=== PATIENT | female | born 1935 | race Caucasian/White ===

== ENCOUNTER 2016-07-07 09:54 | Emergency (ER) | payer OTHER, MEDICARE ==
[~2016-07-07] VITALS: Ht 157.5 cm; Wt 64.1 kg
[~2016-07-07 09:54] MED LIST: ASPCH81 PO; CHOL100010 PO; CLTP PO; CYAN500T PO; HYDC25 PO; PRM/45 PO; SIMV20TA2 PO; TPRSRUNK PO
[2016-07-07 10:02] VITALS: TEMP 36.6; Ht 157.5 cm; Wt 64.1 kg
[2016-07-07] MEDS ORDERED: HYDR25TA5 PO (10:32)
[2016-07-07] MEDS ORDERED: LOSA100T65 PO (10:32)
[2016-07-07] MEDS ORDERED: ZCR40 PO (10:32)
[2016-07-07] MEDS ORDERED: ASPI81TA28 PO (10:32)
[2016-07-07] MEDS ORDERED: PRM/3 PO (10:32)
[2016-07-07] MEDS ORDERED: MELO7.5T5 PO (10:32)
[2016-07-07] MEDS ORDERED: TPRSR/50 PO (10:32)
[2016-07-07] MEDS ORDERED: CHOL100010 PO (10:33)
[2016-07-07] MEDS ORDERED: PYRI100T4 PO (10:33)
[2016-07-07 10:51] VITALS: O2SAT 94
[2016-07-07 11:06] LABS: BASO % 0.2 %; BASO ABS # 0.02 K/uL (0-0.2); COMPLETE YES; EOS % 0.7 %; IG% 0.3 %; LYMPH % 16.3 %; LYMPH ABS # 1.91 K/uL (1.2-3.4); MEAN CELL VOLUME 93.5 fL (80-100); MEAN CORPUSCULAR HEMOGLOBIN 31.7 pg (25-34); MEAN CORPUSCULAR HGB CONC 33.9 g/dl (32-36); MEAN PLATELET VOLUME 11.5 fL (7.4-10.4); MONO % 5.5 %; PLATELET COUNT 218 K/uL (130-400); RED BLOOD COUNT 3.85 M/uL (4.2-5.4)
[2016-07-07 11:18] LABS: INR 0.9 (0.9-1.1); PARTIAL THROMBOPLASTIN RATIO 0.9; PROTHROMBIN TIME (PATIENT) 9.9 SECONDS (9.0-12.0)
--- NOTE | 2016-07-07 11:19 | DIAGNOSTIC IMAGING REPORT ---
CHEST 2 VIEWS ROUTINE CLINICAL HISTORY: cough dyspnea COMPARISON STUDY: 04/03/2011 FINDINGS: interval median sternotomy. Diaphragms smooth. Mild chronic elevation left hemidiaphragm. Lungs are clear. IMPRESSION: No acute process Electronically signed by: Morris Marquez M.D. 07/07/2016 11:18 AM Dictated Date/Time: 07/07/2016 11:17 AM
[2016-07-07 11:22] LABS: URINE APPEARANCE CLOUDY (CLEAR); URINE BILIRUBIN NEG (NEG); URINE COLOR YELLOW; URINE EPITHELIAL CELL AUTO >30 /lpf (0-5); URINE NITRITE NEG (NEG); URINE PH 5.5 (4.5-7.5); URINE SPECIFIC GRAVITY 1.018 (1.000-1.030); UROBILINOGEN NEG (NEG); ZZUR CULT IF INDIC CLEAN CATCH NO
[2016-07-07 11:25] LABS: BUN/CREATININE RATIO 18.9 (10-20); CALCIUM 8.6 mg/dl (8.5-10.1); CREATININE 0.86 mg/dl (0.60-1.20); MAGNESIUM 2.3 mg/dl (1.8-2.4); POTASSIUM 3.4 mmol/L (3.5-5.1)
[2016-07-07 11:25] LABS: MANUAL MICROSCOPIC REQUIRED? NO; REVIEW REQ? NO
[2016-07-07 11:36] LABS: ALB/GLOB RATIO 0.8 (0.9-2); CKMB/CK RATIO 1.6 (0-3.0); THYROID STIMULATING HORMONE 1.27 uIu/ml (0.300-4.500)
[2016-07-07] MEDS ORDERED: ALBUTEROL HFA 8 GM INHALER INH STA (12:41)
[2016-07-07] MEDS ORDERED: AZITHROMYCIN 250 MG TAB PO ONE (12:45)
[2016-07-07] MEDS ORDERED: ZTHM250 PO (13:36)
--- NOTE | 2016-07-07 13:39 | EMERGENCY ROOM VISIT NOTE ---
History First contact with patient: 10:13 Chief Complaint: COUGH Stated Complaint: COUGHING X 1 1/2 WKS., CONGESTION Nursing Triage Summary: pt reports coughX 2.5 weeks with " sticky phlegm yellow in color" + increased sob , denies LUCAS or NV History of Present Illness The patient is a 81 year old female who presents to the Emergency Department by private vehicle for evaluation of a cough and congestion for the past 2.5 weeks. She reports experiencing a hoarse cough as well as production of greenish sputum over the last few days. She denies any fevers or chills. She reports nasal congestion. She reports an epigastric abdominal discomfort which is worse with cough. She denies any chest pain, palpitations, shortness of breath, dizziness, or lightheadedness. She denies any recent sick contacts. She rates her current discomfort as a 0/10. Patient denies any recent long distance travel. She does report a history of coronary artery disease with bypass 3 years ago. She reports absolute no chest pain, exertional pain, or hemoptysis. Review of Systems A complete 10-point Review of Systems was discussed with the patient, with pertinent positives and negatives listed in the History of Present Illness. All remaining Review of Systems questions can be considered negative unless otherwise specified. Past Medical/Surgical History Medical Problems: (1) Heart disease (2) Hypertension Family History Heart disease Hypertension Social History Smoking Status: Never Smoker Smokeless Tobacco Use: No Alcohol Use: none Marital Status: single Housing Status: lives alone Occupation Status: employed Current/Historical Medications Scheduled Aspirin (Aspirin Ec), 81 MG PO DAILY Azithromycin (Azithromycin), 1 TAB PO DAILY Cholecalciferol (Vitamin D), 2,000 UNITS PO DAILY Estrogens, Conjugated (Premarin), 0.3 MG PO DAILY Hydrochlorothiazide (Hydrochlorothiazide), 25 MG PO DAILY Losartan Potassium (Cozaar), 100 MG PO DAILY Meloxicam (Mobic), 7.5 MG PO DAILY Metoprolol Succinate (Metoprolol Succinate ER), 50 MG PO DAILY Pyridoxine (Vitamin B6), 100 MG PO DAILY Simvastatin (Simvastatin), 40 MG PO QPM Allergies Coded Allergies: Amoxicillin (Verified Allergy, Unknown, "SHORT OF BREATH", 07/07/16) Physical Exam Vital Signs Date Time Temp Pulse Resp B/P Pulse Ox O2 Delivery O2 Flow Rate FiO2 07/07/16 14:02 68 21 122/62 96 07/07/16 12:36 64 21 120/60 96 07/07/16 11:01 62 07/07/16 10:51 94 Room Air 07/07/16 10:02 36.6 74 18 158/68 94 Room Air Pain Rating (0-10): 0 Physical Exam VITAL SIGNS - Vital signs and nursing notes were reviewed. GENERAL - 81-year-old female appearing her stated age who is in no acute distress. Communicates well with provider and answers questions appropriately. HEAD - NC/AT. EYES - PERRL with EOMI bilaterally. Sclera anicteric. Palpebral conjunctiva pink and moist with no injection noted. EARS - No deformities of external structures noted on gross examination bilaterally. No pain elicited with palpation of the tragus bilaterally. External auditory canals without discharge or otorrhea. Tympanic membranes pearly rodriguez without retraction or bulging. NOSE - Midline and without cyanosis. No epistaxis or purulent drainage noted. Septum midline without deviation or septal hematoma noted. MOUTH/OROPHARYNX - Without perioral cyanosis. Buccal mucosa pink and moist and without leukoplakia. Tongue midline with equal elevation of palate bilaterally. No tonsillar hypertrophy, erythema, or exudates noted. NECK - Neck with FROM. Supple to palpation. LUNGS - Chest wall symmetric without accessory muscle use, intercostals retractions, or central cyanosis. Normal vesicular breath sounds CTA B/L. No wheezes, rales, or rhonchi appreciated. CARDIAC - RRR with S1/S2. No murmur, rubs, or gallops appreciated. No reproducible tenderness to palpation appreciated over the anterior chest wall. ABDOMEN - Abdominal contour flat and without pulsations or visible masses. BS normoactive all four quadrants. No tenderness, palpable masses, hepatosplenomegaly, or ascites noted. EXTREMITIES - No clubbing or peripheral cyanosis. No pretibial edema present. +3 /5 radial and dorsalis pedis pulses palpated throughout. +5/5 strength noted in UE/LE bilaterally. PSYCH - A&Ox3 and cooperates fully with examiner. Pt is very pleasant and interacts well with examiner. Medical Decision & Procedures ER Provider Diagnostic Interpretation: Radiological imaging and reports were reviewed by myself. Radiologist's Interpretation as follows: CHEST 2 VIEWS ROUTINE CLINICAL HISTORY: cough dyspnea COMPARISON STUDY: 04/03/2011 FINDINGS: interval median sternotomy. Diaphragms smooth. Mild chronic elevation left hemidiaphragm. Lungs are clear. Laboratory Results 07/07/16 10:50 Red Blood Count 3.85, Mean Corpuscular Volume 93.5, Mean Corpuscular Hemoglobin 31.7, Mean Corpuscular Hemoglobin Concent 33.9, Mean Platelet Volume 11.5, Neutrophils (%) (Auto) 77.0, Lymphocytes (%) (Auto) 16.3, Monocytes (%) (Auto) 5.5, Eosinophils (%) (Auto) 0.7, Basophils (%) (Auto) 0.2, Neutrophils # (Auto) 9.02, Lymphocytes # (Auto) 1.91, Monocytes # (Auto) 0.64, Eosinophils # (Auto) 0.08, Basophils # (Auto) 0.02 07/07/16 10:50 Test 07/07/16 10:50 07/07/16 10:55 07/07/16 11:01 White Blood Count 11.70 K/uL (4.8-10.8) Red Blood Count 3.85 M/uL (4.2-5.4) Hemoglobin 12.2 g/dL (12.0-16.0) Hematocrit 36.0 % (37-47) Mean Corpuscular Volume 93.5 fL (80-100) Mean Corpuscular Hemoglobin 31.7 pg (25-34) Mean Corpuscular Hemoglobin Concent 33.9 g/dl (32-36) Platelet Count 218 K/uL (130-400) Mean Platelet Volume 11.5 fL (7.4-10.4) Neutrophils (%) (Auto) 77.0 % Lymphocytes (%) (Auto) 16.3 % Monocytes (%) (Auto) 5.5 % Eosinophils (%) (Auto) 0.7 % Basophils (%) (Auto) 0.2 % Neutrophils # (Auto) 9.02 K/uL (1.4-6.5) Lymphocytes # (Auto) 1.91 K/uL (1.2-3.4) Monocytes # (Auto) 0.64 K/uL (0.11-0.59) Eosinophils # (Auto) 0.08 K/uL (0-0.5) Basophils # (Auto) 0.02 K/uL (0-0.2) RDW Standard Deviation 42.2 fL (36.4-46.3) RDW Coefficient of Variation 12.4 % (11.5-14.5) Immature Granulocyte % (Auto) 0.3 % Immature Granulocyte # (Auto) 0.03 K/uL (0.00-0.02) Prothrombin Time 9.9 SECONDS (9.0-12.0) Prothromb Time International Ratio 0.9 (0.9-1.1) Activated Partial Thromboplast Time 24.4 SECONDS (21.0-31.0) Partial Thromboplastin Ratio 0.9 Anion Gap 9.0 mmol/L (3-11) Est Creatinine Clear Calc Drug Dose 46.6 ml/min Estimated GFR () 74.5 Estimated GFR (Non- 64.3 BUN/Creatinine Ratio 18.9 (10-20) Calcium Level 8.6 mg/dl (8.5-10.1) Magnesium Level 2.3 mg/dl (1.8-2.4) Total Bilirubin 0.7 mg/dl (0.2-1) Aspartate Amino Transf (AST/SGOT) 27 U/L (15-37) Alanine Aminotransferase (ALT/SGPT) 32 U/L (12-78) Alkaline Phosphatase 80 U/L (45-117) Total Creatine Kinase 173 U/L (26-192) Creatine Kinase MB 2.7 ng/ml (0.5-3.6) Creatine Kinase MB Ratio 1.6 (0-3.0) Total Protein 7.2 gm/dl (6.4-8.2) Albumin 3.3 gm/dl (3.4-5.0) Globulin 3.9 gm/dl (2.5-4.0) Albumin/Globulin Ratio 0.8 (0.9-2) Lipase 178 U/L (73-393) Thyroid Stimulating Hormone (TSH) 1.270 uIu/ml (0.300-4.500) Urine Color YELLOW Urine Appearance CLOUDY (CLEAR) Urine pH 5.5 (4.5-7.5) Urine Specific [place] 1.018 (1.000-1.030) Urine Protein NEG (NEG) Urine Glucose (UA) NEG (NEG) Urine Ketones NEG (NEG) Urine Occult Blood TRACE (NEG) Urine Nitrite NEG (NEG) Urine Bilirubin NEG (NEG) Urine Urobilinogen NEG (NEG) Urine Leukocyte Esterase SMALL (NEG) Urine WBC (Auto) 5-10 /hpf (0-5) Urine RBC (Auto) 0-4 /hpf (0-4) Urine Hyaline Casts (Auto) 1-5 /lpf (0-5) Urine Epithelial Cells (Auto) >30 /lpf (0-5) Urine Bacteria (Auto) NEG (NEG) Bedside Troponin I 0.000 ng/ml (0-0.045) Medications Administered Medications (Trade) Dose Ordered Sig/Blaine Route Start Time Stop Time Status Last Admin Dose Admin Azithromycin (Zithromax Tab) 500 mg NOW ONCE PO 07/07/16 12:45 07/07/16 12:46 DC 07/07/16 12:58 500 MG Albuterol (Ventolin Hfa Inhaler) 2 puffs ONE STAT INH 07/07/16 12:41 07/07/16 12:43 DC 07/07/16 12:58 2 PUFFS Procedure Patient was placed on the desk assistant and monitored throughout the entire extent of their stay. In addition, the patient's pulse oximetry was monitored throughout the entire stay. Any abnormalities or aberrancies were addressed appropriately. ECG Indication: chest pain Rate (beats per minute): 61 Rhythm: normal sinus Findings: nonspecific-ST abn, no acute ischemic change, no ectopy Change: no significant change (from 06/21/2011.) ED Course Patient was seen and evaluated by myself. Labs were drawn, saline lock in place. EKG and chest x-rays were obtained. Patient declines anything for pain while in the emergency department. Laboratory results demonstrates a mild leukocytosis. The patient is not anemic. There are no significant electrolyte abnormalities. Cardiac enzymes are not elevated. Troponin is negative. Case was discussed with my attending physician who agrees with diagnostic approach and treatment plan. The patient was placed on azithromycin and provided an albuterol inhaler. Patient will follow-up with her primary care provider from today's visit. She will return for any changing or worsening symptoms. Patient discharged home afebrile and in good condition. Medical Decision Given the patient's presentation and stated complaints, I did elect to perform the above-mentioned workup. The patient presents today with chest congestion and an ongoing cough for the last 2.5 weeks. She has no fever. She doesn't mild leukocytosis. Chest x-ray demonstrates no acute consolidations concerning for pneumonia. She does have mild stenosis and in the setting of ongoing cough , I did elect to treat the patient with azithromycin and she is provided albuterol he'll her for home. Cardiac enzymes are negative. EKG is unremarkable. The patient will follow-up with her primary care provider from today's visit. She will return for any changing or worsening symptoms. Patient discharged home afebrile and in good condition. In the evaluation and treatment of this patient, the following differential diagnoses were considered: TN, ASC, Dysrhythmia, Angina, Mediastinitis, GERD, Esophagitis, PE, Pneumonia, Bronchitis, Costochondritis, Rib Fracture, Zoster. Impression Primary Impression: Acute bronchitis Additional Impression: Cough Departure Information Dispostion Home / Self-Care Condition GOOD Prescriptions Azithromycin (Azithromycin) 250 Mg Tab 1 TAB PO DAILY for 4 Days, #4 TAB Prov: Luca More PA-C 07/07/16 Referrals Jose De Jesus Burnett M.D. (PCP) Patient Instructions Bronchitis Acute, My [facility] Additional Instructions You have been seen in the emergency department today for your cough - acute bronchitis. Please use the albuterol inhaler 2 puffs every 4-6 hours for the next 3-4 days and then as needed for cough. You were prescribed Azithromycin to be taken as prescribed. This is an antibiotic. All antibiotics have the potential to cause diarrhea. Stop this medication and contact a medical provider if you were to develop any significant adverse side effects including: wheezing, shortness of breath, passing out, vomiting, or a diffuse rash. Always take antibiotics as directed and COMPLETE the ENTIRE course regardless of the improvement of your symptoms. For pain control, you can use the following [id number] medicines (if >12 yo): - Regular strength (325mg/tab) Tylenol (acetaminophen) 2 tabs every 4-6 hours as needed. Do not exceed 12 tablets in a 24 hour period. Avoid taking more than 4 grams (4000 mg) of Tylenol per day. This includes any other sources of acetaminophen you may take on a regular basis. - Regular strength (200 mg/tab) Advil (ibuprofen) 1-2 tabs every 4-6 hours as needed. Do not exceed a dose of 3200 mg per day. Follow-up with your primary care provider in the next 24-48 hours for recheck. Return for any changing or worsening symptoms. Problem Qualifiers Primary Impression: Acute bronchitis Bronchitis organism: unspecified organism Qualified Codes: J20.9 - Acute bronchitis, unspecified
[2016-07-07 14:02] VITALS: BP 122/62; PULSE 68; O2SAT 96
== END 2016-07-07 14:05 | disposition home or self-care (01) ==
LOC: C.EDB 09:56 → C.EDC 14:05
DX: J20.9 Acute bronchitis, unspecified (principal); I10 Essential (primary) hypertension; I51.9 Heart disease, unspecified; Z79.82 Long term (current) use of aspirin; Z79.899 Other long term (current) drug therapy; Z88.1 Allergy status to other antibiotic agents; Z82.49 Family history of ischemic heart disease and other diseases of the circulatory system

== ENCOUNTER → 2016-07-16 | Outpatient (CLI) | payer OTHER, MEDICARE ==
[~2016-07-16] MED LIST changes: -ASPCH81 PO; +ASPI81TA28 PO; -CLTP PO; -CYAN500T PO; -HYDC25 PO; +HYDR25TA5 PO; +LOSA100T65 PO; +MELO7.5T5 PO; +PRM/3 PO; -PRM/45 PO; +PYRI100T4 PO; -SIMV20TA2 PO; +TPRSR/50 PO; -TPRSRUNK PO; +ZCR40 PO; +ZTHM250 PO
[2016-07-16 17:30] LABS: BASO % 0.3 %; BASO ABS # 0.02 K/uL (0-0.2); COMPLETE YES; HEMATOCRIT 36.2 % (37-47); IG% 0.4 %; LYMPH % 24.3 %; MEAN CELL VOLUME 93.8 fL (80-100); MEAN CORPUSCULAR HEMOGLOBIN 30.8 pg (25-34); MEAN CORPUSCULAR HGB CONC 32.9 g/dl (32-36); MEAN PLATELET VOLUME 11.8 fL (7.4-10.4); MONO % 5.8 %; NEUT % 68.2 %; PLATELET COUNT 318 K/uL (130-400); RED BLOOD COUNT 3.86 M/uL (4.2-5.4); WHITE BLOOD COUNT 7.01 K/uL (4.8-10.8)
[2016-07-16 17:39] LABS: INR 0.9 (0.9-1.1)
[2016-07-16 19:32] LABS: ALKALINE PHOSPHATASE 65 U/L (45-117); AST/SGOT 22 U/L (15-37); BLOOD UREA NITROGEN 20 mg/dl (7-18); BUN/CREATININE RATIO 21.7 (10-20); CALCIUM 8.7 mg/dl (8.5-10.1); CARBON DIOXIDE 29 mmol/L (21-32); CHLORIDE 103 mmol/L (98-107); CHOLESTEROL 132 mg/dl (0-200); CHOLESTEROL/HDL RATIO 2.3; GLUCOSE 86 mg/dl (70-99); HDL CHOLESTEROL 58 mg/dl; LDL CHOLESTEROL CALCULATED 57 mg/dl; POTASSIUM 3.5 mmol/L (3.5-5.1); SODIUM 141 mmol/L (136-145); TRIGLYCERIDES 87 mg/dl (0-150); VERY LOW DENSITY LIPOPROT CALC 17 mg/dl
[2016-07-16 19:45] LABS: ALT/SGPT 27 U/L (12-78); THYROID STIMULATING HORMONE 0.622 uIu/ml (0.300-4.500)
== END | disposition home or self-care (01) ==
LOC: C.LABBFT 14:39
PROVIDERS: ATTEND Internal Medicine Geriatric Medicine
DX: M85.80 Other specified disorders of bone density and structure, unspecified site (principal); I10 Essential (primary) hypertension; G56.00 Carpal tunnel syndrome, unspecified upper limb; I25.10 Atherosclerotic heart disease of native coronary artery without angina pectoris; E78.5 Hyperlipidemia, unspecified; E55.9 Vitamin D deficiency, unspecified; R58 Hemorrhage, not elsewhere classified

== ENCOUNTER → 2016-10-09 | Outpatient (CLI) | payer OTHER, MEDICARE ==
[~2016-10-09] MED LIST changes: +AZIT-57 PO; -ZTHM250 PO
--- NOTE | 2016-10-09 15:53 | MAMMOGRAPHY REPORT ---
BILATERAL DIGITAL SCREENING MAMMOGRAM WITH CAD: 10/09/2016 CLINICAL HISTORY: Routine screening. Patient has no complaints. TECHNIQUE: Current study was also evaluated with a Computer Aided Detection (CAD) system. Bilatera l CC and MLO views were obtained. COMPARISON: Comparison is made to exams dated: 10/04/2015 mammogram, 09/28/2014 mammogram, 09/22/2013 ma mmogram, 09/17/2012 mammogram, 09/12/2011 mammogram, and 09/06/2009 mammogram - [facility] enter. BREAST COMPOSITION: The tissue of both breasts is heterogeneously dense, which may obscure small ma sses. FINDINGS: No suspicious masses, calcifications, or areas of architectural distortion are noted in e ither breast. There has been no significant interval change compared to prior exams. IMPRESSION: ACR BI-RADS CATEGORY 1: NEGATIVE There is no mammographic evidence of malignancy. A 1 year screening mammogram is recommended. The p atient will receive written notification of the results. Approximately 10% of breast cancers are not detected with mammography. A negative mammographic repor t should not delay biopsy if a clinically suggestive mass is present. Leslie Schulte M.D. /:10/09/2016 15:14:29 Night Monitor: Ericka Amin, [facility] letter sent: Normal 1/2 BI-RADS Code: ACR BI-RADS Category 1: Negative
== END | disposition home or self-care (01) ==
LOC: C.MAMM 10:00
PROVIDERS: ATTEND Obstetrics & Gynecology
DX: Z12.31 Encounter for screening mammogram for malignant neoplasm of breast (principal)

== ENCOUNTER → 2016-11-24 | Outpatient (CLI) | payer OTHER, MEDICARE ==
[~2016-11-24] MED LIST changes: -AZIT-57 PO; +ZTHM250 PO
[2016-11-24 13:56] LABS: URINE APPEARANCE CLEAR (CLEAR); URINE BILIRUBIN NEG (NEG); URINE COLOR YELLOW; URINE EPITHELIAL CELL AUTO >30 /lpf (0-5); URINE NITRITE NEG (NEG); URINE SPECIFIC GRAVITY 1.022 (1.000-1.030); UROBILINOGEN NEG (NEG)
[2016-11-24 13:59] LABS: MANUAL MICROSCOPIC REQUIRED? NO; REVIEW REQ? NO
== END | disposition home or self-care (01) ==
LOC: C.LABSPEC 12:28
PROVIDERS: ATTEND Physician Assistant
DX: R39.9 Unspecified symptoms and signs involving the genitourinary system (principal)

== ENCOUNTER 2017-05-20 11:23 | Emergency (ER) | payer OTHER, MEDICARE ==
[~2017-05-20] VITALS: Ht 165.1 cm; Wt 59.6 kg
[~2017-05-20 11:23] MED LIST changes: +AZIT-57 PO; -ZTHM250 PO
[2017-05-20 11:31] VITALS: BP 155/90; PULSE 58; TEMP 36.7; O2SAT 96; Ht 165.1 cm; Wt 59.6 kg
--- NOTE | 2017-05-20 13:00 | DIAGNOSTIC IMAGING REPORT ---
L KNEE 3 VIEWS CLINICAL HISTORY: same pain. Trauma. COMPARISON: None. DISCUSSION: The bones and joint spaces appear intact. There is no evidence of fracture, dislocation or bony disease. Mild prepatellar soft tissue edema IMPRESSION: Negative study. No acute process. Mild prepatellar soft tissue edema The above report was generated using voice recognition software. It may contain grammatical, syntax or spelling errors. Electronically signed by: Morris Marquez M.D. 05/20/2017 12:59 PM Dictated Date/Time: 05/20/2017 12:58 PM
--- NOTE | 2017-05-20 13:06 | DIAGNOSTIC IMAGING REPORT ---
L FOOT MIN 3 VIEWS ROUTINE CLINICAL HISTORY: 81 years-old Female presenting with left leg injury from fall one week ago, bruising from the knee to the foot. TECHNIQUE: Frontal, oblique, and lateral views left foot were obtained. COMPARISON: None. FINDINGS: Mild soft tissue swelling may be present diffusely. No acute fracture or malalignment. Mild degenerative change may be present at the first metatarsophalangeal joint. IMPRESSION: No acute osseous injury of the left foot. Electronically signed by: Orlando Mayfield M.D. 05/20/2017 1:05 PM Dictated Date/Time: 05/20/2017 1:03 PM
--- NOTE | 2017-05-20 13:07 | DIAGNOSTIC IMAGING REPORT ---
L ANKLE MIN 3 VIEWS ROUTINE CLINICAL HISTORY: L knee, lower leg, ankle and foot pain pain. Edema. COMPARISON: None. DISCUSSION: The bones and joint spaces appear intact. There is no evidence of fracture, dislocation or bony disease. Mild generalized soft tissue edema. Minimal calcification of the Achilles tendon insertion. IMPRESSION: Mild soft tissue edema. Minimal degenerative change. No acute process. The above report was generated using voice recognition software. It may contain grammatical, syntax or spelling errors. Electronically signed by: Morris Marquez M.D. 05/20/2017 1:06 PM Dictated Date/Time: 05/20/2017 1:00 PM
--- NOTE | 2017-05-20 13:09 | DIAGNOSTIC IMAGING REPORT ---
L TIBIA/FIBULA 2 VIEWS ROUTINE CLINICAL HISTORY: 81 years-old Female presenting with left leg injury from fall one week ago. TECHNIQUE: Frontal and lateral views of the left lower leg were obtained. COMPARISON: None. FINDINGS: Knee joint and ankle mortise grossly intact. Mild diffuse soft tissue swelling may be present. No acute fracture or malalignment. No advanced degenerative change. IMPRESSION: No acute osseous injury of the left lower leg. Electronically signed by: Orlando Mayfield M.D. 05/20/2017 1:07 PM Dictated Date/Time: 05/20/2017 1:05 PM
--- NOTE | 2017-05-20 13:37 | EMERGENCY ROOM VISIT NOTE ---
ED Visit Note First contact with patient: 11:53 Patient seen and examined at bedside with physician human resource assistant. All results reviewed with patient. Patient has been ambulatory and has a follow-up appointment arranged with her primary care provider next week. Discussed with patient rest, elevation, symptoms to watch and return for, she verbalized understanding was agreeable with plan.
--- NOTE | 2017-05-20 21:56 | EMERGENCY ROOM VISIT NOTE ---
ED Visit Note First contact with patient: 11:53 Chief Complaint: Bruising and pain in my left knee and leg. History of Present Illness: Ms. Lopez is a 81-year-old white female who ambulates into the ED complaining of left knee, and lower leg pain. Patient reports a proximally 1 week ago she was hanging up [place] decorations at [employer] when her left leg was caught between a metal door. She reports she twisted and pulled her leg out of the door. She did not fall to the ground. Since this occurred she reports that she has been having pain and swelling in the knee, tibia, ankle and foot. She reports initially her pain was mild and has gradually increased in intensity and she has noted increasing swelling and bruising throughout this area. Currently she rates her discomfort as an achy sensation. She rates her discomfort 2/10. Her pain worsens with palpation. She has not identified any alleviating factors related to the pain. She has not taken any medications for pain prior to arrival at the hospital. She denies any associated symptoms including leg weakness/numbness/tingling, previous significant injuries or surgeries, back pain. Review of Systems: As noted above in history of present illness. Past Medical History: Unspecified heart disease and surgeries, hypertension. Current Medications: Premarin, Mobic, simvastatin, Cozaar, hydrochlorothiazide, metoprolol, aspirin and multiple vitamins. Allergies to Medications: Amoxicillin. Social History: Patient is currently employed; she feels safe in her home environment; she denies tobacco and alcohol use. Physical Examination: Vital Signs: Date Time Temp Pulse Resp B/P (MAP) Pulse Ox O2 Delivery O2 Flow Rate FiO2 05/20/17 11:31 36.7 58 18 155/90 96 Room Air GENERAL: 81-year-old female in mild distress due to pain, nontoxic-appearing, afebrile and hemodynamically stable. NEUROLOGICAL: Awake, alert and oriented to person, place and time. Answering questions appropriately and following commands. Mild limp gait favoring the left leg. Good hand eye coordination. No focal motor or sensory deficits. SKIN: Warm, dry and pink. Left Lower Extremity: No open soft tissue injury. Patient has moderate ecchymosis/contusions starting at the medial aspect of the mid thigh, extending into the knee. There is an abrupt stop and then she has return of ecchymosis over the lower half of the tibia/fibula anteriorly which extends down into the bilateral ankles and into the toes. LEFT LOWER EXTREMITY: No gross bony deformity. No shortening or malrotation. Soft tissue injury as noted above. No tenderness in the hip or thigh. Mild tenderness over the anterior medial knee where there is a large ecchymosis area. This area swelling. She has no joint line tenderness. No laxity of the collateral cruciate ligaments. She has full range of motion of the knee. Negative Jennie's test. Negative patellar apprehension test. Negative ballottement test. Extending inferior patient has tenderness over the anterior tibia over the superior half. I do not appreciate any bony deformity or crepitus. She has no tenderness over the fibula. She goes on to have tenderness over the medial aspect of the ankle just inferior to the malleolus where once again there is a large amount of ecchymosis. I do not appreciate any bony deformity or crepitus I do not appreciate any laxity with ligamentous testing. Her ecchymosis does extend down into her toes that are contused. She has swelling there with mild tenderness but no gross bony deformity or tenderness. She has full range of the ankle and full range of motion of flexion and extension of all toes. Distal pulses are intact and equal bilaterally. She is able to distinguish light sensations through all dermatomes. ED Course: Patient is assessed as noted above. Patient's medication list was reviewed. Patient was offered pain medication and refused. Left Knee X-Rays: Was read by myself and the radiologist showing no acute fractures or dislocations. No joint effusion. Left Lower Leg X-Rays: Was read by myself and the radiologist showing no acute fractures or dislocations. Left Ankle X-Rays: Were read by myself and the radiologist and shows no acute fractures or dislocations with moderate swelling. Left Foot X-Rays: Were read by myself and the radiologist and shows no acute fractures or dislocations. Patient's case was reviewed with Dr. Dominguez; she and family assessed the patient we agreed on diagnostic approach, treatment, disposition and plan. Patient was offered a cane and walker for stability and refused. Patient was educated about today's findings and instructed on her treatment plan ; she verbalized understanding and agreement with this plan. Clinical Impression: Multiple areas of contusion of the left lower leg and foot. Decision-Making: A kristie I differential diagnosis I considered fracture, dislocation, contusion, muscle strain and other causes. Disposition: Patient discharged home in stable condition accompanied by her daughter; prior to departure she was reassessed and subjectively rated her discomfort 08/01. Plan: Patient was encouraged to continue current medications as prescribed. Patient was encouraged to keep her leg elevated while at rest. Patient was encouraged to keep her upcoming appointment with her primary care physician next week; she was encouraged to contact her primary care provider's office and request a possible earlier appointment. Patient is encouraged return ED for worsening/uncontrolled pain, increasing swelling/bruising, left leg weakness/numbness/tingling or any new/concerning symptoms.
== END 2017-05-20 13:48 | disposition home or self-care (01) ==
LOC: C.EDB 11:25 → C.EDD 13:48
DX: S80.12XA Contusion of left lower leg, initial encounter (principal); S90.02XA Contusion of left ankle, initial encounter; S90.32XA Contusion of left foot, initial encounter; S90.122A Contusion of left lesser toe(s) without damage to nail, initial encounter; S70.12XA Contusion of left thigh, initial encounter; W23.1XXA Caught, crushed, jammed, or pinched between stationary objects, initial encounter; Y92.22 Religious institution as the place of occurrence of the external cause; I10 Essential (primary) hypertension; Z79.82 Long term (current) use of aspirin

== ENCOUNTER → 2017-10-15 | Outpatient (CLI) | payer OTHER, MEDICARE ==
[~2017-10-15] MED LIST changes: -AZIT-57 PO
--- NOTE | 2017-10-16 15:19 | MAMMOGRAPHY REPORT ---
BILATERAL DIGITAL SCREENING MAMMOGRAM TOMOSYNTHESIS WITH CAD: 10/15/2017 CLINICAL HISTORY: Routine screening. Patient has no complaints. TECHNIQUE: Breast tomosynthesis in addition to standard 2D mammography was performed. Current study was also evaluated with a Computer Aided Detection (CAD) system. COMPARISON: Comparison is made to exams dated: 10/09/2016 mammogram, 10/04/2015 mammogram, 09/28/2014 ma mmogram, 09/22/2013 mammogram, 09/17/2012 mammogram, and 09/16/2010 ultrasound - [facility] nter. BREAST COMPOSITION: The tissue of both breasts is heterogeneously dense, which may obscure small mas ses. FINDINGS: No suspicious masses, calcifications, or areas of architectural distortion are noted in ei ther breast. There has been no significant interval change compared to prior exams. Linear densities in the right medial posterior breast on the right cc view are artifactual and related to a wig. IMPRESSION: ACR BI-RADS CATEGORY 2: BENIGN There is no mammographic evidence of malignancy. A 1 year screening mammogram is recommended. The pa tient will receive written notification of the results. Approximately 10% of breast cancers are not detected with mammography. A negative mammographic report should not delay biopsy if a clinically suggestive mass is present. Leslie Schulte M.D. /:10/15/2017 14:51:30 Sheet Metal Engineer: Ninoska FRITZ(Siddhartha)(Idris), [facility] letter sent: Normal 1/2 BI-RADS Code: ACR BI-RADS Category 2: Benign
== END | disposition home or self-care (01) ==
LOC: C.MAMM 11:28
PROVIDERS: ATTEND Internal Medicine Geriatric Medicine
DX: Z12.31 Encounter for screening mammogram for malignant neoplasm of breast (principal)

== ENCOUNTER → 2017-12-09 | Outpatient (CLI) | payer OTHER, MEDICARE ==
[2017-12-09 17:20] LABS: BASO % 0.1 %; BASO ABS # 0.01 K/uL (0-0.2); EOS % 1.2 %; EOS ABS # 0.08 K/uL (0-0.5); HEMATOCRIT 37.4 % (37-47); HEMOGLOBIN 12.2 g/dL (12.0-16.0); IG# 0.01 K/uL (0.00-0.02); LYMPH % 23.8 %; LYMPH ABS # 1.61 K/uL (1.2-3.4); MEAN CELL VOLUME 95.2 fL (80-100); MEAN CORPUSCULAR HGB CONC 32.6 g/dl (32-36); MEAN PLATELET VOLUME 12.6 fL (7.4-10.4); MONO % 4.1 %; MONO ABS # 0.28 K/uL (0.11-0.59); NEUT % 70.7 %; NEUT ABS # 4.77 K/uL (1.4-6.5); PLATELET COUNT 229 K/uL (130-400); RED CELL DISTRIBUTION WIDTH CV 12.4 % (11.5-14.5); RED CELL DISTRIBUTION WIDTH SD 42.9 fL (36.4-46.3); WHITE BLOOD COUNT 6.76 K/uL (4.8-10.8)
[2017-12-09 17:58] LABS: ALBUMIN 3.5 gm/dl (3.4-5.0); ALKALINE PHOSPHATASE 59 U/L (45-117); ALT/SGPT 28 U/L (12-78); AST/SGOT 25 U/L (15-37); BLOOD UREA NITROGEN 20 mg/dl (7-18); CALCIUM 8.7 mg/dl (8.5-10.1); CARBON DIOXIDE 29 mmol/L (21-32); CHOLESTEROL 142 mg/dl (0-200); CREATININE 0.87 mg/dl (0.60-1.20); GLUCOSE 84 mg/dl (70-99); LDL CHOLESTEROL CALCULATED 66 mg/dl; POTASSIUM 3.8 mmol/L (3.5-5.1); SODIUM 141 mmol/L (136-145); TOTAL PROTEIN 6.7 gm/dl (6.4-8.2)
== END | disposition home or self-care (01) ==
LOC: C.LABBFT 11:40
PROVIDERS: ATTEND Internal Medicine Geriatric Medicine
DX: M85.80 Other specified disorders of bone density and structure, unspecified site (principal); I10 Essential (primary) hypertension; E78.5 Hyperlipidemia, unspecified; R41.81 Age-related cognitive decline

== ENCOUNTER 2024-08-21 11:05 | Inpatient (IN) ==
[2024-08-21 11:57] LABS: Basophils # (auto) 0.03 K/uL (0.00-0.20); Basophils % (auto) 0.3 %; Eosinophils # (auto) 0.03 K/uL (0.00-0.50); Eosinophils % (auto) 0.3 %; Hematocrit (blood only) 40.4 % (37.0-47.0); Hemoglobin 13.3 g/dl (12.0-16.0); Immature Granulocytes # (auto) 0.06 K/uL (0.01-0.20); Immature Granulocytes % (auto) 0.5 %; Lymphocytes # (auto) 0.96 K/uL (1.20-3.40); Lymphocytes % (auto) 8.7 %; Mean Corpuscular Hemoglobin 30.3 pg (25.0-34.0); Mean Corpuscular Hgb Conc 32.9 g/dL (32.0-36.0); Mean Platelet Volume 12.4 fL (9.4-12.4); Monocytes # (auto) 0.67 K/uL (0.11-0.59); Monocytes % (auto) 6.1 %; Neutrophils # (auto) 9.26 K/uL (1.40-6.50); Neutrophils % (auto) 84.1 %; Platelet Count 224 K/uL (130-400); RDW Coefficient of Variation 12.1 % (11.5-14.5); RDW Standard Deviation 41.1 fL (36.4-46.3); Red Blood Count 4.39 M/uL (4.20-5.40); White Blood Count 11.01 K/ul (4.8-10.8)
--- NOTE | 2024-08-21 11:59 | XRay Report ---
EXAM: Radiograph of the Chest 1 View INDICATION: Fall TECHNIQUE: Frontal view of the chest. COMPARISON: 11/17/2021 FINDINGS: Lungs and pleural spaces: The left diaphragm is elevated. There is consolidation in the left lung base. Heart: Stable large cardiac shadow. Coronary bypass changes. Mediastinum: Normal contour. Bones/joints: Degenerative changes noted in the scoliotic spine. No acute osseous abnormality noted. Soft tissues: No abnormality noted. No radiopaque foreign body noted. Upper abdomen: No abnormality noted. IMPRESSION: The left diaphragm is elevated. There is consolidation in the left lung base. ACT 112: N/A Electronically signed by Ketty Marx 08-21-2024 11:59 AM
[2024-08-21 12:01] LABS: Albumin Globulin Ratio 1.3 (0.9-2); Albumin Level 3.9 gm/dl (3.4-5.0); BUN Creatinine Ratio 24.1 (10-20); Bilirubin,Total 1.5 mg/dl (0.2-1.0); Calcium 9.1 mg/dl (8.6-10.3); Creatinine Clr Calc Pharmacy 41.2 ml/min; Potassium 3.8 mmol/L (3.5-5.1); Total Protein 6.9 gm/dl (6.0-8.3)
--- NOTE | 2024-08-21 12:02 | CT Scan Report ---
EXAM: CT Cervical Spine Without Intravenous Contrast INDICATION: Trauma TECHNIQUE: Axial computed tomography images of the cervical spine without intravenous contrast. Sagittal and coronal reformatted images were created and reviewed. This CT exam was performed using one or more of the following dose reduction techniques: automated exposure control, adjustment of the mA and/or kV according to patient size, and/or use of iterative reconstruction technique. COMPARISON: 11/17/2021 FINDINGS: Limitations: None. Vertebrae: See below. Discs/spinal canal/neural foramina: The bones are demineralized. Stable flexion centered at C4-C5. Stable osseous fusion C5-C6. Stable facet arthrosis and spondylosis. Stable degenerative grade 1 anterolisthesis of C3 on C4 and C4 on C5. No fracture. There is complete osseous fusion of the C5-C6 intervertebral disc space. There is severe disc space narrowing C6-C7. Moderate narrowing C3-C4. There is a stable central disc herniation with mild flattening of the ventral thecal sac at C2-C3. Stable bilateral foraminal stenosis and moderate ventral canal stenosis due to herniation at C3-C4, C4-C5, C5-C6 and severe stenosis at C6-C7. Soft tissues: No significant abnormality noted. Lung apices: No significant abnormality noted. IMPRESSION: Stable cervical degenerative changes. No acute fracture. ACT 112: N/A Electronically signed by Ketty Marx 08-21-2024 12:02 PM
--- NOTE | 2024-08-21 12:06 | CT Scan Report ---
EXAM: CT Head Without Intravenous Contrast INDICATION: Unwitnessed fall. Dementia. TECHNIQUE: Axial computed tomography images of the head/brain without intravenous contrast. Sagittal and/or coronal reformats are provided. Sagittal and coronal reformatted images were created and reviewed. This CT exam was performed using one or more of the following dose reduction techniques: automated exposure control, adjustment of the mA and/or kV according to patient size, and/or use of iterative reconstruction technique. COMPARISON: 11/17/2021 FINDINGS: Limitations: None. Brain and extra-axial spaces: There is age appropriate cortical atrophy and chronic ischemic periventricular white matter hypodensity. No acute infarct, hemorrhage or mass noted. Bones/joints: No acute changes. Soft tissues: No significant abnormality noted. Vasculature: Intracranial atherosclerosis noted. Sinuses: No layering fluid in the visualized portions of the paranasal sinuses. Mastoid air cells: No mastoid effusion. Orbits: No significant abnormality noted. IMPRESSION: Cerebral atrophy. No acute changes. ACT 112: N/A Electronically signed by Ketty Marx 08-21-2024 12:06 PM
[2024-08-21 14:05] LABS: Appearance Urine Clear (Clear); Bacteria Urine Automated None Seen (None Seen); Bilirubin Urine Negative (Negative); Blood Urine Negative (Negative); Cast Urine Automated 0-2 /lpf (0-2); Color Urine Yellow; Epithelial Cell Urine Auto 0-2 /hpf (0-2); Glucose Urine UA Negative (Negative); Ketones Urine Trace (Negative); Leukocyte Esterase Urine Negative (Negative); Nitrite Urine Negative (Negative); Protein Urine Trace (Negative); RBC Urine Automated 0-2 /hpf (0-2); Specific Gravity Urine 1.017 (1.000-1.030); Urobilinogen Urine Negative (Negative); WBC Urine Automated 0-5 /hpf (0-5)
--- NOTE | 2024-08-21 14:24 | Emergency Department Note ---
Impression & Plan Dementia, Fall, Adult failure to thrive ED Provider Note NAME: RAMOS GOMEZ AGE: 89 SEX: F : 1935 ARRIVES VIA: Ambulance INFORMANT: Patient, ED PROVIDER(S): Carlyn Farias MD CHIEF COMPLAINT: Fall, confusion HPI: This is an 89-year-old female presenting fall confusion. Patient has Alzheimer's dementia but does live alone. She is checked on daily by caretakers. Her niece, who is her POA, states that patient was found on the floor today. Unclear if any injuries. Patient not complain of any pain. Not on any thinners. Otherwise patient has been more confused since Thursday of this week. This is been an abrupt change. Family does request placement at this time. She thinks there may be an upper respiratory faction ground in the family as well. ROS: See above HPI for pertinent positives & negatives. A total of 10 systems reviewed and were otherwise negative. PAST MEDICAL HISTORY: See Below PAST SURGICAL HISTORY: See Below FAMILY HISTORY: See Below SOCIAL HISTORY: See Below HOME MEDICATIONS: See Below ALLERGIES: See Below VITALS: See Below PHYSICAL EXAMINATION: General: resting comfortably in no acute distress Head: Normocephalic and atraumatic Eyes: Normal inspection, extraocular muscles intact Ear, nose, throat: Normal external exam Neck: Normal range of motion Respiratory: lungs clear to auscultation bilaterally Cardiovascular: Regular rate/rhythm, no murmur GI: soft, nontender, no guarding or rebound Extremities: nontender, moves all extremities, moves hips/legs without difficulty/pain Neuro: Awake, not oriented, no focal deficits Skin: Warm, dry, and intact MEDICAL DECISION MAKING: This is an 89-year-old female presenting for fall/confusion. Patient had a fall today with confusion starting multiple days prior. Consider UTI, pressure infection, worsening dementia, delirium. Will check urinalysis, respiratory panel, chest x-ray and CT head/C-spine. For exam reveals no acute traumatic injury -Bloodwork is reviewed showing no significant leukocytosis, anemia, electrolyte or creatinine abnormality -Urinalysis revealed no signs of UTI. -Chest x-ray reveals a left diaphragm is elevated with consolidation of left lung base -Will meet the patient at this time for altered mental status/falls and needing placement Differential diagnosis: URI, UTI, delirium, dementia, failure to thrive, hip fracture Independent History obtained from: [facility] interpreted by me: ECG: None Cardiac Monitoring: An order was placed for continuous cardiac monitoring. The monitor shows a rate of 80 with sinus rhythm. 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) Vitamin D deficiency (Acute) Heart disease (Chronic) Hypokalemia (Acute) Surgical History History of total abdominal hysterectomy History of colonoscopy History of coronary artery bypass graft Family History Brother Parkinson disease Social History (Updated 01/20/24 @ 15:20 by Mery Hill LPN) Smoking Status: Unknown if ever smoked Second Hand Exposure: No; Do You Dip or Chew Tobacco: No; Hx Alcohol Use: No Hx Substance Use: No Preferred Language: Lithuanian Current Living Situation: Alone current occupational status: retired Feels Safe at Home: Yes Safety Concerns Comment: Lives alone Diet: regular caffeine: Yes Dental Care, Regularly: Yes Physical Activity Frequency: 1-2 Times per Week Seatbelt Use: always Sunscreen Use: Yes Assistive Devices: None Allergies Allergies Allergy/AdvReac Type Severity Reaction Status Date / Time amoxicillin Allergy Severe "SHORT OF Verified 01/20/24 15:17 BREATH" atorvastatin AdvReac Intermediate myalgia Verified 01/20/24 15:17 Home Meds Home Medications Medication Instructions Recorded Confirmed No Known Home Medications 01/15/23 08/21/24 Results & Data (ED) Vital Signs Vital Signs - 24 hr 08/21/24 11:12 08/21/24 11:12 08/21/24 11:14 Temperature 37.0 C 37.0 C Temperature Source Oral Oral Pulse Rate 88 81 Pulse Rate [Apical] 88 Pulse Rhythm [Apical] Respiratory Rate 17 17 Respiratory Effort / Characteristics Non-Labored Spontaneous Non-Labored Spontaneous Respiratory Depth Normal Normal Respiratory Pattern Regular Blood Pressure 181/84 H Blood Pressure [Right Arm] 181/84 H Blood Pressure Mean 116 Blood Pressure Mean [Right Arm] 116 Blood Pressure Position Semi-fowlers Blood Pressure Position [Right Arm] Semi-fowlers Pulse Oximetry 95 95 Oxygen Delivery Method Room Air Room Air Sepsis Recent Fever Within 48 Hours No Sepsis New/Unexplained Change in Mental Status N/A Sepsis Action Taken by Nursing No Action Required 08/21/24 13:11 08/21/24 15:00 Temperature Temperature Source Pulse Rate Pulse Rate [Apical] 80 78 Pulse Rhythm [Apical] Regular Respiratory Rate 17 20 Respiratory Effort / Characteristics Non-Labored Spontaneous Non-Labored Respiratory Depth Normal Normal Respiratory Pattern Regular Blood Pressure Blood Pressure [Right Arm] 185/81 H 165/67 H Blood Pressure Mean Blood Pressure Mean [Right Arm] 115 99 Blood Pressure Position Blood Pressure Position [Right Arm] Semi-fowlers Lying Pulse Oximetry 98 95 Oxygen Delivery Method Room Air Room Air Sepsis Recent Fever Within 48 Hours Sepsis New/Unexplained Change in Mental Status Sepsis Action Taken by Nursing Laboratory Data 08/21/24 11:19 08/21/24 11:19 Lab Results 08/21/24 08/21/24 Range/Units 11:19 13:44 WBC 11.01 H (4.8-10.8) K/ul RBC 4.39 (4.20-5.40) M/uL Hgb 13.3 (12.0-16.0) g/dl Hct 40.4 (37.0-47.0) % MCV 92.0 (80.0-100.0) fL MCH 30.3 (25.0-34.0) pg MCHC 32.9 (32.0-36.0) g/dL RDW Std Deviation 41.1 (36.4-46.3) fL RDW Coeff of Za 12.1 (11.5-14.5) % Plt Count 224 (130-400) K/uL MPV 12.4 (9.4-12.4) fL Immature Gran % (Auto) 0.5 % Neut % (Auto) 84.1 % Lymph % (Auto) 8.7 % [place] % (Auto) 6.1 % Eos % (Auto) 0.3 % Baso % (Auto) 0.3 % Neut # (Auto) 9.26 H (1.40-6.50) K/uL Lymph # (Auto) 0.96 L (1.20-3.40) K/uL [place] # (Auto) 0.67 H (0.11-0.59) K/uL Eos # (Auto) 0.03 (0.00-0.50) K/uL Baso # (Auto) 0.03 (0.00-0.20) K/uL Immature Gran # (Auto) 0.06 (0.01-0.20) K/uL Sodium 141 (136-145) mmol/L Potassium 3.8 (3.5-5.1) mmol/L Chloride 108 H (98-107) mmol/L Carbon Dioxide 30 (21-32) mmol/L Anion Gap 3 (3-11) BUN 20 (6-23) mg/dl Creatinine 0.83 (0.6-1.2) mg/dl Est Cr Clr Drug Dosing 41.2 ml/min eGFR 68.19 BUN/Creatinine Ratio 24.1 H (10-20) Glucose 134 H (70-99(Fasting)) mg/dl Calcium 9.1 (8.6-10.3) mg/dl Total Bilirubin 1.5 H (0.2-1.0) mg/dl AST 18 (13-39) U/L ALT 13 (7-52) U/L Alkaline Phosphatase 85 (34-104) U/L Total Creatine Kinase 186 (26-192) U/L Total Protein 6.9 (6.0-8.3) gm/dl Albumin 3.9 (3.4-5.0) gm/dl Globulin 3.0 (2.5-4.0) gm/dl Albumin/Globulin Ratio 1.3 (0.9-2) Urine Color Yellow Urine Appearance Clear (Clear) Urine pH 7.0 (4.5-7.5) Ur Specific [place] 1.017 (1.000-1.030) Urine Protein Trace H (Negative) Urine Glucose (UA) Negative (Negative) Urine Ketones Trace H (Negative) Urine Blood Negative (Negative) Urine Nitrite Negative (Negative) Urine Bilirubin Negative (Negative) Urine Urobilinogen Negative (Negative) Ur Leukocyte Esterase Negative (Negative) Urine WBC (Auto) 0-5 (0-5) /hpf Urine RBC (Auto) 0-2 (0-2) /hpf U Hyaline Cast (Auto) 0-2 (0-2) /lpf U Epithel Cells (Auto) 0-2 (0-2) /hpf Urine Bacteria (Auto) None Seen (None Seen) Adenovirus (PCR) Not Detected (NotDetected) B. pertussis DNA (PCR) Not Detected (NotDetected) B.parapertussis DNA PCR Not Detected (NotDetected) C. pneumoniae DNA (PCR) Not Detected (NotDetected) Coronavirus OC43 (PCR) Not Detected (NotDetected) Coronavirus HKU1 (PCR) Not Detected (NotDetected) Coronavirus 229E (PCR) Not Detected (NotDetected) SARS-CoV-2 (PCR) Not Detected (NotDetected) Coronavirus NL63 (PCR) Not Detected (NotDetected) Human Metapneumovir PCR Not Detected (NotDetected) Influenza Type A (PCR) Not Detected (NotDetected) Influenza Type B (PCR) Not Detected (NotDetected) M. pneumoniae (PCR) Not Detected (NotDetected) Parainfluenza 1 (PCR) Not Detected (NotDetected) Parainfluenza 2 (PCR) Not Detected (NotDetected) Parainfluenza 3 (PCR) Not Detected (NotDetected) Parainfluenza 4 (PCR) Not Detected (NotDetected) RSV (PCR) Not Detected (NotDetected) Entero/Rhino (PCR) Not Detected (NotDetected) Imaging Data Radiologist's Impression: Cervical Spine CT 08/21/24 11:34 EXAM: CT Cervical Spine Without Intravenous Contrast INDICATION: Trauma TECHNIQUE: Axial computed tomography images of the cervical spine without intravenous contrast. Sagittal and coronal reformatted images were created and reviewed. This CT exam was performed using one or more of the following dose reduction techniques: automated exposure control, adjustment of the mA and/or kV according to patient size, and/or use of iterative reconstruction technique. COMPARISON: 11/17/2021 FINDINGS: Limitations: None. Vertebrae: See below. Discs/spinal canal/neural foramina: The bones are demineralized. Stable flexion centered at C4-C5. Stable osseous fusion C5-C6. Stable facet arthrosis and spondylosis. Stable degenerative grade 1 anterolisthesis of C3 on C4 and C4 on C5. No fracture. There is complete osseous fusion of the C5-C6 intervertebral disc space. There is severe disc space narrowing C6-C7. Moderate narrowing C3-C4. There is a stable central disc herniation with mild flattening of the ventral thecal sac at C2-C3. Stable bilateral foraminal stenosis and moderate ventral canal stenosis due to herniation at C3-C4, C4-C5, C5-C6 and severe stenosis at C6-C7. Soft tissues: No significant abnormality noted. Lung apices: No significant abnormality noted. IMPRESSION: Stable cervical degenerative changes. No acute fracture. ACT 112: N/A Electronically signed by Ketty Marx 08-21-2024 12:02 PM Chest X-Ray 08/21/24 11:34 EXAM: Radiograph of the Chest 1 View INDICATION: Fall TECHNIQUE: Frontal view of the chest. COMPARISON: 11/17/2021 FINDINGS: Lungs and pleural spaces: The left diaphragm is elevated. There is consolidation in the left lung base. Heart: Stable large cardiac shadow. Coronary bypass changes. Mediastinum: Normal contour. Bones/joints: Degenerative changes noted in the scoliotic spine. No acute osseous abnormality noted. Soft tissues: No abnormality noted. No radiopaque foreign body noted. Upper abdomen: No abnormality noted. IMPRESSION: The left diaphragm is elevated. There is consolidation in the left lung base. ACT 112: N/A Electronically signed by Ketty Marx 08-21-2024 11:[address] 08/21/24 11:34 EXAM: CT Head Without Intravenous Contrast INDICATION: Unwitnessed fall. Dementia. TECHNIQUE: Axial computed tomography images of the head/brain without intravenous contrast. Sagittal and/or coronal reformats are provided. Sagittal and coronal reformatted images were created and reviewed. This CT exam was performed using one or more of the following dose reduction techniques: automated exposure control, adjustment of the mA and/or kV according to patient size, and/or use of iterative reconstruction technique. COMPARISON: 11/17/2021 FINDINGS: Limitations: None. Brain and extra-axial spaces: There is age appropriate cortical atrophy and chronic ischemic periventricular white matter hypodensity. No acute infarct, hemorrhage or mass noted. Bones/joints: No acute changes. Soft tissues: No significant abnormality noted. Vasculature: Intracranial atherosclerosis noted. Sinuses: No layering fluid in the visualized portions of the paranasal sinuses. Mastoid air cells: No mastoid effusion. Orbits: No significant abnormality noted. IMPRESSION: Cerebral atrophy. No acute changes. ACT 112: N/A Electronically signed by Ketty Marx 08-21-2024 12:06 PM Discharge Plan Visit Data Chief Complaint: Fall Stated Complaint: FALL ED Provider: Carlyn Farias Discharge Problem: Dementia, Fall, Adult failure to thrive Forms Stand Alone Forms: [employer] Prescriptions Prescriptions: No Action No Known Home Medications Referrals Referrals: Enrique Sharp DO [Primary Care Provider] - Discharge Problem: Dementia Qualifiers: Dementia type: Alzheimer's Alzheimer's disease onset: unspecified onset D ementia severity: moderate Dementia behavioral or psychological symptom: u nspecified whether behavioral, psychotic, or mood disturbance or anxiety Q ualified Code(s): G30.9 - Alzheimer's disease, unspecified; F02.B0 - Dementia in other diseases classified elsewhere, moderate, without behavioral disturbance, psychotic disturbance, mood disturbance, and anxiety Fall Qualifiers: Encounter type: initial encounter Qualified Code(s): W19.XXXA - Unspecified fall, initial encounter
[2024-08-21 14:43] LABS: Adenovirus PCR Not Detected (NotDetected); Bordetella parapertussis PCR Not Detected (NotDetected); Bordetella pertussis PCR Not Detected (NotDetected); Chlamydia pneumoniae PCR Not Detected (NotDetected); Coronavirus 229E PCR Not Detected (NotDetected); Coronavirus CoV-2 (COVID19)PCR Not Detected (NotDetected); Coronavirus HKU1 PCR Not Detected (NotDetected); Coronavirus NL63 PCR Not Detected (NotDetected); Coronavirus OC43PCR Not Detected (NotDetected); Human Metapneumovirus PCR Not Detected (NotDetected); Influenza A PCR Not Detected (NotDetected); Influenza B PCR Not Detected (NotDetected); Mycoplasma pneumoniae PCR Not Detected (NotDetected); Parainfluenza Virus 1 PCR Not Detected (NotDetected); Parainfluenza Virus 2 PCR Not Detected (NotDetected); Parainfluenza Virus 3 PCR Not Detected (NotDetected); Parainfluenza Virus 4 PCR Not Detected (NotDetected); Respiratory Syncytial VirusPCR Not Detected (NotDetected); Rhinovirus/Enterovirus PCR Not Detected (NotDetected)
--- NOTE | 2024-08-21 15:08 | History & Physical Report ---
Date of Service August 21, 2024 Assessment & Plan (1) Dementia: (2) Altered mental status: (3) Generalized weakness: (4) Fall: (5) Hypertension: Alonzo Collins is an 89yo F with PMHx of Alzheimer's dementia, CAD s/p CABG, HTN, and aortic insufficiency who presented to the ED after a fall at home. #AMS - Likely delirium on dementia. SLUMS in 2020 c/w moderate dementia. Family reports acute worsening 4 days ago w/ increased confusion, weakness, and loss of independence w ADLs. - No obvious etiology: Does not take any medications or supplements regularly. Labs show no electrolyte derangements. No leukocytosis. Last TSH level wnl. - Family reports recent illness and CXR shows consolidation, but pt had no sick sx and CXR is comparable to previous imaging. - UA with no sign of infection. - Head CT w/o acute processes, shows cerebral atrophy c/w progressive dementia - Family no longer able to care for patient, who lives alone in two-story home, forgets to take her medications, and cannot easily call for help. Not safe for d/c home, consult CM for placement options #Weakness / fall - Pt found on the floor of her bathroom by niralph this morning ~9:30. Time down is uncertain but niece estimates 2 hours. - No trauma or impaired ROM noted on exam. Head CT and c-spine CT show no acute changes. - CK 186 - Will need PT/OT and placement Chronic, stable conditions: - HTN - BP persistently elevated in ED, up to 181/84. Consider resuming previous meds (HCTZ, losartan, metoprolol) - HLD - pt stopped simvastatin; has been at goal w/o medication Diet: IVF --> regular diet, encourage po intake Dispo: admit to med/surg, anticipate placement at rehab/SNF Full code History of Present Illness Primary Care Provider: Enrique Sharp DO Karina is an 89yo F with PMH notable for Alzheimer's dementia, CAD s/p CABG, HTN, and aortic insufficiency who presented to the ED on 08/21 after a fall at home. Her niece Lauren is present in the room and provides most of the history. The patient was diagnosed with Alzheimer's about 6y ago. Was stable until 2021, when she started forgetting to take her medications, and her care team together chose to discontinue them. Her condition was then stable until this past Thursday (08/17), at which point she acutely worsened cognitively and physically. Her niece says the patient is independent at baseline; she lives alone and did not need assistance with ADLs, though her family visited regularly to check on her. Since Thursday, she has been weaker, shaky, unable to care for herself, confused beyond baseline dementia, and speaking slower. The family has some illness going around, and her acute changes were initially attributed to the infection. Then, this morning, Lauren found her on the floor of the bathroom. Karina cannot remember, or is not able to describe, the fall or any associated trauma or LOC. It is unknown how long she was down, though Lauren estimates about 2 hours. In the ED, Karina is stable, still confused, says she feels "fine" and repeatedly asks if she has to stay here tonight. She verbalizes lack of pain, LUCAS, SOB. Allergies Allergy/AdvReac Type Severity Reaction Status Date / Time amoxicillin Allergy Severe "SHORT OF Verified 01/20/24 15:17 BREATH" atorvastatin AdvReac Intermediate myalgia Verified 01/20/24 15:17 Home Medications Medication Instructions Recorded Confirmed Type No Known Home Medications 01/15/23 08/21/24 History 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) Vitamin D deficiency (Acute) Heart disease (Chronic) Hypokalemia (Acute) Surgical History History of total abdominal hysterectomy History of colonoscopy History of coronary artery bypass graft Family History Brother Parkinson disease Social History (Updated 01/20/24 @ 15:20 by Mery Hill LPN) Smoking Status: Never smoker Second Hand Exposure: No; Do You Dip or Chew Tobacco: No; Hx Alcohol Use: No Hx Substance Use: No Preferred Language: Japanese [employer] Required: No Beliefs That Will Affect Care: None Current Living Situation: Alone current occupational status: retired Feels Safe at Home: Yes Safety Concerns Comment: Lives alone Diet: regular caffeine: Yes Dental Care, Regularly: Yes Physical Activity Frequency: 1-2 Times per Week Seatbelt Use: always Sunscreen Use: Yes Assistive Devices: None Review of Systems 2 Review of Systems: Full ROS conducted and negative except as noted in HPI. Physical Exam 2 Physical Exam: Gen: frail, not ill-appearing, confused but cooperative HEENT: NCAT, PERRL, EOMI, no LAD or thyromegaly, mucous membranes somewhat dry CV: RRR, no m/r/g, S1/S2 normal, no LE edema Resp: CTAB, symmetrical chest rise, breathing non-labored Abd: Soft, NT/ND, +BS, no HSM MSK: Full ROM, no gross deformities Skin: Warm, dry, no skin tenting, diffuse ecchymoses a/w previous IVs Neuro: AOx3, some difficulty following instructions, shakiness, PERRL, EOMI, no facial droop, SILT through face and extremities, no focal deficits, str 3/5 in all ext Results & Data Results & Data Vital Signs (Past 12 Hours) Vital Signs Temp Pulse Pulse Resp BP BP Pulse Ox 08/21/24 13:11 80 17 185/81 H 98 08/21/24 11:14 81 08/21/24 11:12 37.0 C 88 17 181/84 H 95 08/21/24 11:12 37.0 C 88 17 181/84 H 95 O2 Del Method 08/21/24 13:11 Room Air 08/21/24 11:14 08/21/24 11:12 Room Air 08/21/24 11:12 Room Air Laboratory Results 08/21/24 11:19 08/21/24 11:19 otal Bilirubin 1.5 H (0.2-1.0) mg/dl AST 18 (13-39) U/L ALT 13 (7-52) U/L Alkaline Phosphatase 85 (34-104) U/L Total Creatine Kinase 186 (26-192) U/L Total Protein 6.9 (6.0-8.3) gm/dl Albumin 3.9 (3.4-5.0) gm/dl Globulin 3.0 (2.5-4.0) gm/dl Albumin/Globulin Ratio 1.3 (0.9-2) Urine Color Yellow Urine Appearance Clear (Clear) Urine pH 7.0 (4.5-7.5) Ur Specific [place] 1.017 (1.000-1.030) Urine Protein Trace H (Negative) Urine Glucose (UA) Negative (Negative) Urine Ketones Trace H (Negative) Urine Blood Negative (Negative) Urine Nitrite Negative (Negative) Urine Bilirubin Negative (Negative) Urine Urobilinogen Negative (Negative) Ur Leukocyte Esterase Negative (Negative) Urine WBC (Auto) 0-5 (0-5) /hpf Urine RBC (Auto) 0-2 (0-2) /hpf U Hyaline Cast (Auto) 0-2 (0-2) /lpf U Epithel Cells (Auto) 0-2 (0-2) /hpf Urine Bacteria (Auto) None Seen (None Seen) Respiratory BioFire all negative. Diagnostic Findings Cervical Spine CT 08/21/24 11:34 EXAM: CT Cervical Spine Without Intravenous Contrast INDICATION: Trauma COMPARISON: 11/17/2021 FINDINGS: Vertebrae: See below. Discs/spinal canal/neural foramina: The bones are demineralized. Stable flexion centered at C4-C5. Stable osseous fusion C5-C6. Stable facet arthrosis and spondylosis. Stable degenerative grade 1 anterolisthesis of C3 on C4 and C4 on C5. No fracture. There is complete osseous fusion of the C5-C6 intervertebral disc space. There is severe disc space narrowing C6-C7. Moderate narrowing C3-C4. There is a stable central disc herniation with mild flattening of the ventral thecal sac at C2-C3. Stable bilateral foraminal stenosis and moderate ventral canal stenosis due to herniation at C3-C4, C4-C5, C5-C6 and severe stenosis at C6-C7. Soft tissues: No significant abnormality noted. Lung apices: No significant abnormality noted. IMPRESSION: Stable cervical degenerative changes. No acute fracture. Chest X-Ray 08/21/24 11:34 EXAM: Radiograph of the Chest 1 View INDICATION: Fall COMPARISON: 11/17/2021 FINDINGS: Lungs and pleural spaces: The left diaphragm is elevated. There is consolidation in the left lung base. Heart: Stable large cardiac shadow. Coronary bypass changes. Mediastinum: Normal contour. Bones/joints: Degenerative changes noted in the scoliotic spine. No acute osseous abnormality noted. Soft tissues: No abnormality noted. No radiopaque foreign body noted. Upper abdomen: No abnormality noted. IMPRESSION: The left diaphragm is elevated. There is consolidation in the left lung base. Head CT 08/21/24 11:34 EXAM: CT Head Without Intravenous Contrast INDICATION: Unwitnessed fall. Dementia. COMPARISON: 11/17/2021 FINDINGS: Brain and extra-axial spaces: There is age appropriate cortical atrophy and chronic ischemic periventricular white matter hypodensity. No acute infarct, hemorrhage or mass noted. Bones/joints: No acute changes. Soft tissues: No significant abnormality noted. Vasculature: Intracranial atherosclerosis noted. Sinuses: No layering fluid in the visualized portions of the paranasal sinuses. Mastoid air cells: No mastoid effusion. Orbits: No significant abnormality noted. IMPRESSION: Cerebral atrophy. No acute changes. Supervising Physician Co-Signing Physician Notes I personally examined the patient and verified all estrada points of history and exam, discussed case, and agree with decision making with Dr Marcus COLLINS or review of systems obtainable from patient. Family notes that she was slowly worsening with progressive dementia but was able to live independently with family support over the last 5 years since diagnosis, but was gradually worsening. However, she had an abrupt decline a few days ago where she was much weaker not able to get around well and speaking much less and much more slowly. There has been a rather nasty virus going around the family, and they assumed she was probably sick with that, but because she was not able to get around as well and they were worried about her ability for self-care/the ability to be cared for by family, and also to determine if there was anything else going on, they brought her to the hospital for further evaluation. Vitals noted, in general she is awake and alert not very talkative but appears to be in no distress, somewhat fatigued. HEENT normocephalic atraumatic mucous membranes slightly dry. Cardio is regular, no rubs murmurs or gallops. Lungs clear to auscultation bilaterally no rales rhonchi or wheezes with good effort. Skin is dry but shows no rashes no pallor or icterus. Large seborrheic keratosis on left upper chest/clavicular region. Neuro shows no lateralizing signsgross motor and sensory appear to be intact cranial nerves appear to be intact. Labs and diagnostics noted. Delirium superimposed on dementiaI suspect the family's assessment of things is correctshe probably picked up a viral infection, did get a little bit dehydrated, and those 2 things superimposed on her baseline, probably severe dementia led to a delirium phenotype. Discussed the natural history of delirium. Discussed supportive care, discussed that it will likely take weeks or more to resolve, discussed that in the hospital unfortunately things will often wax and wane more simply due to the hospital environment. Family expressed good understanding. I do not see anything bacterial, chest x-ray raises the question of a left lower lobe infiltrateI suspect this is just heart shadow and diaphragm shadow together and does not look that different from her chest x-ray from 2 years ago, her lungs are clear, and her white count is only 11, she is afebrile and on room airi.e. nothing appears consistent with a pneumonia. Obviously serial exams and initiate antibiotics if anything changes. IV fluids and then encourage p.o. intake progressed dementiait sounds like she had reached a point where she is no longer safe at home despite rather robust family support. I offered words of encouragement to her niece, Lauren, who has been doing the heavy lifting of taking care of her aunt for the last several yearsand discussed that if she has reached a point where placement is necessary, that frequently happens with the natural history of dementia, and that it was a significant achievement she was able to keep her at home as long as she has (not a failure if she requires placement). PT/OT and case management evals. Otherwise as above. Resident Activity Tracking Resident Involvement: Resident Care Provided Care Provided: Adult Hospital Medicine (4) Fall Encounter type: initial encounter Qualified Code(s): W19.XXXA - Unspecified fall, initial encounter
--- NOTE | 2024-08-21 16:08 | Billing Data ---
Date of Service August 21, 2024 Coding Level of Care Code 08263 SUB INP/OBS CARE MIN
[2024-08-21] MEDS ORDERED: POLYETHYLENE (MIRALAX) 17 GM PACK PO PRN (17:02)
[2024-08-21] MEDS: MELATONIN 3 MG TAB PO PRN (20:27)
[2024-08-22] MEDS: ACETAMINOPHEN 500 MG TAB PO PRN (06:01)
[2024-08-22 06:53] LABS: Hematocrit (blood only) 38.6 % (37.0-47.0); Mean Corpuscular Hemoglobin 30.7 pg (25.0-34.0); Mean Corpuscular Hgb Conc 33.7 g/dL (32.0-36.0); Mean Corpuscular Volume 91.3 fL (80.0-100.0); Mean Platelet Volume 12.4 fL (9.4-12.4); Platelet Count 205 K/uL (130-400); RDW Coefficient of Variation 12.1 % (11.5-14.5); RDW Standard Deviation 40.6 fL (36.4-46.3); Red Blood Count 4.23 M/uL (4.20-5.40); White Blood Count 9.14 K/ul (4.8-10.8)
[2024-08-22 07:16] LABS: BUN Creatinine Ratio 17.6 (10-20); Calcium 8.5 mg/dl (8.6-10.3); Creatinine Clr Calc Pharmacy 50.3 ml/min; Potassium 3.5 mmol/L (3.5-5.1)
--- NOTE | 2024-08-22 07:36 | XRay Report ---
EXAM: XR shoulder RT min 2V routine CLINICAL HISTORY: Fall, pain TECHNIQUE: X-ray images of the right shoulder were obtained in anteroposterior (AP), internal rotation and abduction projections. COMPARISON: Prior right shoulder x-ray on 11/17/2021 FINDINGS: Bone Structure: Bone structure is normal and aligned. No evidence of fracture or dislocation. Humeral head is properly positioned in the glenoid fossa. Diffuse decreased bone density. Joint Spaces: Glenohumeral joint spaces are normal. No evidence of joint effusion or subluxation. Acromioclavicular osteoarthritis, seen as narrowed joint space. Soft Tissues: Soft tissues appear normal and unremarkable. No soft tissue swelling, calcifications, or foreign bodies noted. Additional Findings: No lytic or sclerotic lesions. Moderate thoracic dextroscoliosis with Olmedo angle 41°. IMPRESSION: 1. Normal X-ray of the right shoulder. No evidence of acute fracture, dislocation, or significant soft tissue abnormalities. 2. Acromioclavicular osteoarthritis. 3. Diffuse decreased bone density. 4. Moderate thoracic dextroscoliosis with Olmedo angle 41°. 5. Midline sternotomy sutures are seen. 6. Cardiac valve replacement is noted. 7. No interval changes compared to prior study. Disclaimer: A subtle bone abnormality or fracture may not be readily apparent on X-rays, thus clinical correlation and further imaging including follow-up CT, MRI, or follow-up X-rays are advised as needed. Electronically signed by Luther Sharp 08-22-2024 07:36 AM
--- NOTE | 2024-08-22 07:38 | XRay Report ---
EXAM: XR forearm RT 2V CLINICAL HISTORY: Fall, pain. TECHNIQUE: X-ray images of the right forearm were obtained in anteroposterior (AP) and lateral projections. COMPARISON: No prior studies available for comparison. FINDINGS: Bone Structure: Bone structure is normal and aligned. No evidence of fracture or dislocation. Radius and ulna are intact without any osseous lesions or abnormalities. Diffuse decreased bone density. Thin sclerotic line is seen at the proximal end of the radius, likely artifactual. Joint Spaces: Elbow and wrist joint spaces are normal. No evidence of joint effusion or subluxation. Soft Tissues: Soft tissues appear normal and unremarkable. No soft tissue swelling, calcifications, or foreign bodies noted. Additional Findings: No signs of periosteal reaction, or other abnormalities. IMPRESSION: 1. No evidence of acute fracture, dislocation, or significant soft tissue abnormalities. 2. Diffuse decreased bone density. Disclaimer: A subtle bone abnormality or fracture may not be readily apparent on X-rays, thus clinical correlation and further imaging, including follow-up CT, MRI, or follow-up X-rays, are advised as needed. Electronically signed by Luther Sharp 08-22-2024 07:37 AM
--- NOTE | 2024-08-22 14:18 | Hospitalist Progress Note ---
Date of Service August 22, 2024 Assessment & Plan (1) Dementia: (2) Altered mental status: (3) Generalized weakness: (4) Fall: (5) Hypertension: Plan Karina is an 89yo F with PMHx of Alzheimer's dementia, CAD s/p CABG, HTN, and aortic insufficiency who presented to the ED after a fall at home. #AMS - Likely delirium on dementia. SLUMS in 2020 c/w moderate dementia. Family reports acute worsening 4 days ago w/ increased confusion, weakness, and loss of independence w ADLs. - No obvious etiology: Does not take any medications or supplements regularly. Labs show no electrolyte derangements. No leukocytosis. Last TSH level wnl. - Family reports recent illness and CXR shows consolidation, but pt had no sick sx and CXR is comparable to previous imaging. - UA with no sign of infection. - Head CT w/o acute processes, shows cerebral atrophy c/w progressive dementia - Family no longer able to care for patient, who lives alone in two-story home, forgets to take her medications, and cannot easily call for help. Not safe for d/c home - Case management consulted #Weakness / fall - Pt found on the floor of her bathroom by celestino this morning ~9:30. Time down is uncertain but niece estimates 2 hours. - No trauma or impaired ROM noted on exam. Head CT and c-spine CT show no acute changes. - CK 186 - PT/OT ordered Chronic, stable conditions: - HTN - BP persistently elevated in ED, up to 181/84. Consider resuming previous meds (HCTZ, losartan, metoprolol) - HLD - pt stopped simvastatin; has been at goal w/o medication Diet: IVF --> regular diet, encourage po intake Dispo: admit to med/surg, anticipate placement at rehab/SNF Full code Admission and Anticipated Discharge Date Admission Date: August 21, 2024 Supervising Physician Co-Signing Physician Notes I personally examined the patient and verified estrada points of history and exam, discussed case, and agree with decision making and plan documented by Dr. Quinteros. Patient confused and not oriented on exam, attempting to get out of bed to leave. Patient denies history of fall, she denies pain, no cardiorespiratory complaints. Attempting to contact family for more information. Will recommend one-to-one at this time with redirection as able. Subjective Karina Mihalik is a 89 y/o F resting comfortably and AxO2 this morning. Patient is oriented to name and place but not age. Patient is not in acute distress, afebrile and hemodynamically stable. Patient states that she lives with her older sister and does not have any children, but receives assistance from her niece. Physical Exam Physical Exam: General: patient resting comfortably, NAD, non-toxic in appearance, answers questions appropriately. Skin: warm, dry, intact HEENT: NC/AT, anicteric sclera, conjunctiva without injection, moist mucus membranes. Heart: +S1/S2, regular, no m/r/g Lungs: equal air entry bilaterally, no rales/rhonchi/wheezes Abd: +BS, soft, NT/ND Ext: warm, no clubbing/cyanosis or edema Neuro: nonfocal, speech intact, no facial droop, moving all extremities. Results & Data Results & Data Vital Signs (Past 12 Hours) Vital Signs Temp Pulse Resp BP Pulse Ox O2 Del Method 08/22/24 13:28 Room Air 08/22/24 12:00 36.8 C 77 14 154/66 H 95 Room Air 08/22/24 07:45 37.1 C 65 14 152/56 H 96 Room Air (4) Fall Encounter type: initial encounter Qualified Code(s): W19.XXXA - Unspecified fall, initial encounter
[2024-08-22] MEDS: hydrOXYzine HCl 10 MG TAB PO ONE (20:46)
[2024-08-23 07:31] LABS: Hematocrit (blood only) 38.4 % (37.0-47.0); Hemoglobin 13.1 g/dl (12.0-16.0); Mean Corpuscular Hemoglobin 30.5 pg (25.0-34.0); Mean Corpuscular Hgb Conc 34.1 g/dL (32.0-36.0); Mean Corpuscular Volume 89.3 fL (80.0-100.0); Platelet Count 216 K/uL (130-400); RDW Coefficient of Variation 12.1 % (11.5-14.5); RDW Standard Deviation 39.8 fL (36.4-46.3); White Blood Count 11.07 K/ul (4.8-10.8)
[2024-08-23 07:43] LABS: Calcium 8.5 mg/dl (8.6-10.3); Potassium 3.5 mmol/L (3.5-5.1)
--- NOTE | 2024-08-23 09:30 | Hospitalist Progress Note ---
Date of Service August 23, 2024 Assessment & Plan (1) Dementia: (2) Altered mental status: (3) Generalized weakness: (4) Fall: (5) Hypertension: Plan Karina is an 89yo F with PMHx of Alzheimer's dementia, CAD s/p CABG, HTN, and aortic insufficiency who presented to the ED after a fall at home. #AMS - Likely delirium on dementia. SLUMS in 2020 c/w moderate dementia. Family reports acute worsening 4 days ago w/ increased confusion, weakness, and loss of independence w ADLs. - No obvious etiology: Does not take any medications or supplements regularly. Labs show no electrolyte derangements. No leukocytosis. Last TSH level wnl. - Family reports recent illness and CXR shows consolidation, but pt had no sick sx and CXR is comparable to previous imaging. - UA with no sign of infection. - Head CT w/o acute processes, shows cerebral atrophy c/w progressive dementia - Family no longer able to care for patient, who lives alone in two-story home, forgets to take her medications, and cannot easily call for help. Not safe for d/c home - Case management consulted #Weakness / fall - Pt found on the floor of her bathroom by niralph this morning ~9:30. Time down is uncertain but niece estimates 2 hours. - No trauma or impaired ROM noted on exam. Head CT and c-spine CT show no acute changes. - CK 186 - PT/OT ordered Chronic, stable conditions: - HTN - BP persistently elevated in ED, up to 181/84. Consider resuming previous meds (HCTZ, losartan, metoprolol) - HLD - pt stopped simvastatin; has been at goal w/o medication Diet: IVF --> regular diet, encourage po intake Dispo: admit to med/surg, anticipate placement at rehab/SNF. Working on options between [facility] vs [facility] with patient's POA Full code Admission and Anticipated Discharge Date Admission Date: August 21, 2024 Supervising Physician Co-Signing Physician Notes I personally examined the patient and verified estrada points of history and exam, discussed case, and agree with decision making and plan documented by Dr. Quinteros. Patient confused and not oriented on exam but pleasant today and denied any needs or concerns. Agree with trial of quetiapine at night. Reviewed importance of sleep cycle with patient. CM assisting family with placement options. Subjective Karina Lopez is a 89 y/o F resting comfortably and AxO2 this morning. Patient is oriented to name and place but not age. Patient is not in acute distress, afebrile and hemodynamically stable. Patient states that she lives with her older sister and does not have any children. Patient's POA is her niece Christal perdomo. Physical Exam Physical Exam: General: patient resting comfortably, NAD, non-toxic in appearance, answers questions appropriately. Skin: warm, dry, intact HEENT: NC/AT, anicteric sclera, conjunctiva without injection, moist mucus membranes. Heart: +S1/S2, regular, no m/r/g Lungs: equal air entry bilaterally, no rales/rhonchi/wheezes Abd: +BS, soft, NT/ND Ext: warm, no clubbing/cyanosis or edema Neuro: nonfocal, speech intact, no facial droop, moving all extremities. Results & Data Results & Data Vital Signs (Past 12 Hours) Vital Signs Temp Pulse Resp BP Pulse Ox O2 Del Method 08/23/24 07:16 37.2 C 75 16 171/75 H 95 Room Air 08/22/24 22:36 Room Air Resident Activity Tracking Resident Involvement: Resident Care Provided Care Provided: Adult Hospital Medicine (4) Fall Encounter type: initial encounter Qualified Code(s): W19.XXXA - Unspecified fall, initial encounter
[2024-08-23] MEDS: QUEtiapine FUMARATE 25 MG TABLET PO SCH (21:01)
[2024-08-24 07:09] LABS: Hematocrit (blood only) 36.6 % (37.0-47.0); Mean Corpuscular Hemoglobin 29.9 pg (25.0-34.0); Mean Corpuscular Hgb Conc 32.8 g/dL (32.0-36.0); Mean Corpuscular Volume 91.3 fL (80.0-100.0); Mean Platelet Volume 12.2 fL (9.4-12.4); Platelet Count 186 K/uL (130-400); RDW Coefficient of Variation 12.3 % (11.5-14.5); RDW Standard Deviation 40.9 fL (36.4-46.3); Red Blood Count 4.01 M/uL (4.20-5.40); White Blood Count 8.33 K/ul (4.8-10.8)
[2024-08-24 07:32] LABS: BUN Creatinine Ratio 23.9 (10-20); Calcium 8.4 mg/dl (8.6-10.3); Creatinine Clr Calc Pharmacy 37.2 ml/min; Potassium 3.7 mmol/L (3.5-5.1)
--- NOTE | 2024-08-24 16:25 | Hospitalist Progress Note ---
Date of Service August 24, 2024 Assessment & Plan (1) Dementia: (2) Altered mental status: (3) Generalized weakness: (4) Fall: (5) Hypertension: Plan Karina is an 89yo F with PMHx of Alzheimer's dementia, CAD s/p CABG, HTN, and aortic insufficiency who presented to the ED after a fall at home. #AMS - Likely delirium on dementia. SLUMS in 2020 c/w moderate dementia. Family reports acute worsening 4 days ago w/ increased confusion, weakness, and loss of independence w ADLs. - No obvious etiology: Does not take any medications or supplements regularly. Labs show no electrolyte derangements. No leukocytosis. Last TSH level wnl. - Family reports recent illness and CXR shows consolidation, but pt had no sick sx and CXR is comparable to previous imaging. - UA with no sign of infection. - Head CT w/o acute processes, shows cerebral atrophy c/w progressive dementia - Family no longer able to care for patient, who lives alone in two-story home, forgets to take her medications, and cannot easily call for help. Not safe for d/c home - Case management consulted- Auths sent for [facility] and [facility]. Patient POA preference is [facility] after researching options #Weakness / fall - Pt found on the floor of her bathroom by celestino this morning ~9:30. Time down is uncertain but niece estimates 2 hours. - No trauma or impaired ROM noted on exam. Head CT and c-spine CT show no acute changes. - CK 186 - PT/OT consulted, recommend acute SNF rehab Chronic, stable conditions: - HTN - BP persistently elevated in ED, up to 181/84. Consider resuming previous meds (HCTZ, losartan, metoprolol) - HLD - pt stopped simvastatin; has been at goal w/o medication Diet: IVF --> regular diet, encourage po intake Dispo: admit to med/surg, anticipate placement at rehab/SNF. Working on options between [facility] vs [facility] with patient's POA Full code Admission and Anticipated Discharge Date Admission Date: August 21, 2024 Supervising Physician Co-Signing Physician Notes I personally examined the patient and verified estrada points of history and exam, discussed case, and agree with decision making and plan documented by Dr. Quinteros. Improved sleep overnight with addition of quetiapine. CM assisting family with placement options, referrals pending. Subjective Karina Lopez is a 89 y/o F resting comfortably and AxO2 this morning. Patient is oriented to name and place but not age. Patient is not in acute distress, afebrile and hemodynamically stable. Patient's niece Lauren was contacted and reports that she prefers the [facility] over [facility], and does report worsening dementia and worsened ADL's progressively getting much worse over the past few weeks. Patient remains medically stable and once authorized will require transfer to one of the locations mentioned above. Physical Exam Physical Exam: General: patient resting comfortably, NAD, non-toxic in appearance, answers questions appropriately. Skin: warm, dry, intact HEENT: NC/AT, anicteric sclera, conjunctiva without injection, moist mucus membranes. Heart: +S1/S2, regular, no m/r/g Lungs: equal air entry bilaterally, no rales/rhonchi/wheezes Abd: +BS, soft, NT/ND Ext: warm, no clubbing/cyanosis or edema Neuro: nonfocal, speech intact, no facial droop, moving all extremities. Results & Data Results & Data Vital Signs (Past 12 Hours) Vital Signs Temp Pulse Resp BP Pulse Ox O2 Del Method 08/24/24 14:08 37.1 C 80 18 103/69 95 Room Air 08/24/24 07:16 36.6 C 64 16 145/79 H 94 Room Air Resident Activity Tracking Resident Involvement: Resident Care Provided Care Provided: Adult Hospital Medicine (4) Fall Encounter type: initial encounter Qualified Code(s): W19.XXXA - Unspecified fall, initial encounter
[2024-08-25 08:12] LABS: Hematocrit (blood only) 36.3 % (37.0-47.0); Mean Corpuscular Hemoglobin 30.5 pg (25.0-34.0); Mean Corpuscular Hgb Conc 33.1 g/dL (32.0-36.0); Mean Corpuscular Volume 92.4 fL (80.0-100.0); Mean Platelet Volume 12.6 fL (9.4-12.4); Platelet Count 193 K/uL (130-400); Red Blood Count 3.93 M/uL (4.20-5.40); White Blood Count 7.69 K/ul (4.8-10.8)
[2024-08-25 08:34] LABS: BUN Creatinine Ratio 31.1 (10-20); Calcium 8.4 mg/dl (8.6-10.3); Potassium 3.6 mmol/L (3.5-5.1)
--- NOTE | 2024-08-25 13:50 | Hospitalist Progress Note ---
Date of Service August 25, 2024 Assessment & Plan (1) Dementia: (2) Altered mental status: (3) Generalized weakness: (4) Fall: (5) Hypertension: Plan Karina is an 89yo F with PMHx of Alzheimer's dementia, CAD s/p CABG, HTN, and aortic insufficiency who presented to the ED after a fall at home. #AMS - Likely delirium on dementia. SLUMS in 2020 c/w moderate dementia. Family reports acute worsening 4 days ago w/ increased confusion, weakness, and loss of independence w ADLs. - No obvious etiology: Does not take any medications or supplements regularly. Labs show no electrolyte derangements. No leukocytosis. Last TSH level wnl. - Family reports recent illness and CXR shows consolidation, but pt had no sick sx and CXR is comparable to previous imaging. - UA with no sign of infection. - Head CT w/o acute processes, shows cerebral atrophy c/w progressive dementia - Family no longer able to care for patient, who lives alone in two-story home, forgets to take her medications, and cannot easily call for help. Not safe for d/c home - Case management consulted- Auths sent for [facility] and [facility]. Patient POA preference is [facility] after researching options #Weakness / fall - Pt found on the floor of her bathroom by celestino this morning ~9:30. Time down is uncertain but niece estimates 2 hours. - No trauma or impaired ROM noted on exam. Head CT and c-spine CT show no acute changes. - CK 186 - PT/OT consulted, recommend acute SNF rehab Chronic, stable conditions: - HTN - BP persistently elevated in ED, up to 181/84. Consider resuming previous meds (HCTZ, losartan, metoprolol) - HLD - pt stopped simvastatin; has been at goal w/o medication Diet: IVF --> regular diet, encourage po intake Dispo: admit to med/surg, anticipate placement at rehab/SNF. Working on options between [facility] vs [facility] with patient's POA Full code Admission and Anticipated Discharge Date Admission Date: August 21, 2024 Supervising Physician Co-Signing Physician Notes I personally examined the patient and verified estrada points of history and exam, discussed case, and agree with decision making and plan documented by Dr. Quinteros. Patient denies concerns. Currently under review for placement. Medically stable for discharge. Mary Lopez is a 89 y/o F resting with her right arm stretched out to the ceiling and complains of diffuse R. arm pain this morning. Patient continues to be oriented to name and place but not age. Patient is afebrile and hemodynamically stable. Patient remains medically stable and once authorized will require transfer [facility] or [facility]. Physical Exam Physical Exam: General: patient resting comfortably, NAD, non-toxic in appearance, answers questions appropriately. Skin: warm, dry, intact HEENT: NC/AT, anicteric sclera, conjunctiva without injection, moist mucus membranes. Heart: +S1/S2, regular, no m/r/g Lungs: equal air entry bilaterally, no rales/rhonchi/wheezes Abd: +BS, soft, NT/ND Ext: warm, no clubbing/cyanosis or edema Neuro: nonfocal, speech intact, no facial droop, moving all extremities. Results & Data Results & Data Vital Signs (Past 12 Hours) Vital Signs Temp Pulse Resp BP Pulse Ox O2 Del Method 08/25/24 07:46 36.6 C 74 18 127/71 96 Room Air Resident Activity Tracking Resident Involvement: Resident Care Provided Care Provided: Adult Hospital Medicine (4) Fall Encounter type: initial encounter Qualified Code(s): W19.XXXA - Unspecified fall, initial encounter
[2024-08-26 08:14] LABS: Hematocrit (blood only) 38.1 % (37.0-47.0); Hemoglobin 12.6 g/dl (12.0-16.0); Mean Corpuscular Hemoglobin 30.9 pg (25.0-34.0); Mean Corpuscular Hgb Conc 33.1 g/dL (32.0-36.0); Mean Corpuscular Volume 93.4 fL (80.0-100.0); Mean Platelet Volume 12.5 fL (9.4-12.4); Platelet Count 206 K/uL (130-400); RDW Coefficient of Variation 12.3 % (11.5-14.5); RDW Standard Deviation 42.4 fL (36.4-46.3); Red Blood Count 4.08 M/uL (4.20-5.40); White Blood Count 6.76 K/ul (4.8-10.8)
[2024-08-26 08:26] LABS: Calcium 8.4 mg/dl (8.6-10.3)
[2024-08-26 08:32] LABS: BUN Creatinine Ratio 28.9 (10-20); Creatinine Clr Calc Pharmacy 41.2 ml/min
--- NOTE | 2024-08-26 10:06 | Hospitalist Progress Note ---
Date of Service August 26, 2024 Assessment & Plan (1) Dementia: (2) Altered mental status: (3) Generalized weakness: (4) Fall: (5) Hypertension: Plan Karina is an 89yo F with PMHx of Alzheimer's dementia, CAD s/p CABG, HTN, and aortic insufficiency who presented to the ED after a fall at home. #AMS - Likely delirium on dementia. SLUMS in 2020 c/w moderate dementia. Family reports acute worsening 4 days ago w/ increased confusion, weakness, and loss of independence w ADLs. - No obvious etiology: Does not take any medications or supplements regularly. Labs show no electrolyte derangements. No leukocytosis. Last TSH level wnl. - Family reports recent illness and CXR shows consolidation, but pt had no sick sx and CXR is comparable to previous imaging. - UA with no sign of infection. - Head CT w/o acute processes, shows cerebral atrophy c/w progressive dementia - Family no longer able to care for patient, who lives alone in two-story home, forgets to take her medications, and cannot easily call for help. Not safe for d/c home - Case management consulted- Auths sent for [facility]. Patient POA preference is [facility] but is considering alternate options, [facility] can accept patient Thursday #Weakness / fall - Pt found on the floor of her bathroom by celestino this morning ~9:30. Time down is uncertain but celestino estimates 2 hours. - No trauma or impaired ROM noted on exam. Head CT and c-spine CT show no acute changes. - CK 186 - PT/OT consulted, recommend acute SNF rehab Chronic, stable conditions: - HTN - BP persistently elevated in ED, up to 181/84. Consider resuming previous meds (HCTZ, losartan, metoprolol) - HLD - pt stopped simvastatin; has been at goal w/o medication Diet: IVF --> regular diet, encourage po intake Dispo: admit to med/surg, anticipate placement at rehab/SNF. Working on options between [facility] vs [facility] with patient's POA Full code Admission and Anticipated Discharge Date Admission Date: August 21, 2024 Supervising Physician Co-Signing Physician Notes I personally examined the patient and verified estrada points of history and exam, discussed case, and agree with decision making and plan documented by Dr. Quinteros. No fracture on x-rays of right upper extremity. Patient reports improvement of pain. Continue topical diclofenac as needed with acetaminophen. Anticipate discharge to [facility] Thursday. Subjective Karina Lopez is a 89 y/o F resting with her right arm stretched out to the ceiling and complains of diffuse R. arm pain similar to previous day. Throughout yesterday and overnight this pain improved, but is worsened this morning. Patient continues to be oriented to name and place but not age. Patient is afebrile and hemodynamically stable. Patient remains medically stable and once authorized will require transfer to [facility] or other personal [facility]. Patient's niece, Lauren, is still exploring different options. Physical Exam Physical Exam: General: patient resting comfortably, NAD, non-toxic in appearance, answers questions appropriately. Skin: warm, dry, intact HEENT: NC/AT, anicteric sclera, conjunctiva without injection, moist mucus membranes. Heart: +S1/S2, regular, no m/r/g Lungs: equal air entry bilaterally, no rales/rhonchi/wheezes Abd: +BS, soft, NT/ND Ext: warm, no clubbing/cyanosis or edema Neuro: nonfocal, speech intact, no facial droop, moving all extremities. Results & Data Results & Data Vital Signs (Past 12 Hours) Vital Signs Temp Pulse Resp BP Pulse Ox O2 Del Method 08/26/24 08:22 37.1 C 66 18 205/67 H 92 Room Air Resident Activity Tracking Resident Involvement: Resident Care Provided Care Provided: Adult Hospital Medicine (4) Fall Encounter type: initial encounter Qualified Code(s): W19.XXXA - Unspecified fall, initial encounter
--- NOTE | 2024-08-26 10:21 | XRay Report ---
XR forearm RT 2V CLINICAL HISTORY: worsening R. arm pain 24H, worst around elbow COMPARISON: Right forearm radiographs August 22, 2024. FINDINGS: There are no fractures within the right radius or ulna. There is no definite evidence for a right elbow joint effusion. There are no osseous lesions within the right radius or ulna. IMPRESSION: No fractures within the right radius or ulna. ACT 112: Negative or not required by law. Electronically signed by: Pa Her M.D. 08/26/2024 10:19 AM
--- NOTE | 2024-08-26 10:23 | XRay Report ---
XR humerus RT 2V HISTORY: 89 years-old Female Worsening R. arm pain 24H, worst around elbow COMPARISON: Forearm radiographs of same day TECHNIQUE: 2 views of the right humerus FINDINGS: Osteoarthritis of the elbow and shoulder. Demineralized appearance of the bones. No acute fracture, d islocation or opaque foreign body identified. IMPRESSION: No acute fracture or dislocation identified. ACT 112: Negative or not required by law. The above report was generated using voice recognition software. It may contain grammatical, syntax o r spelling errors. Electronically signed by: Phan Mendoza M.D. 08/26/2024 10:22 AM
[2024-08-26] MEDS: DICLOFENAC SOD 1% GEL 100 GM TUBE EXT SCH (12:19)
[2024-08-27 07:48] LABS: Hematocrit (blood only) 35.8 % (37.0-47.0); Hemoglobin 11.7 g/dl (12.0-16.0); Mean Corpuscular Hemoglobin 30.3 pg (25.0-34.0); Mean Corpuscular Hgb Conc 32.7 g/dL (32.0-36.0); Mean Corpuscular Volume 92.7 fL (80.0-100.0); Platelet Count 212 K/uL (130-400); RDW Coefficient of Variation 12.4 % (11.5-14.5); Red Blood Count 3.86 M/uL (4.20-5.40)
[2024-08-27 07:53] LABS: Calcium 8.3 mg/dl (8.6-10.3); Potassium 3.9 mmol/L (3.5-5.1)
[2024-08-27 07:59] LABS: BUN Creatinine Ratio 23.1 (10-20); Creatinine Clr Calc Pharmacy 43.9 ml/min
--- NOTE | 2024-08-27 09:42 | Hospitalist Progress Note ---
Date of Service August 27, 2024 Assessment & Plan (1) Dementia: (2) Altered mental status: (3) Generalized weakness: (4) Fall: (5) Hypertension: Plan Karina is an 89yo F with PMHx of Alzheimer's dementia, CAD s/p CABG, HTN, and aortic insufficiency who presented to the ED after a fall at home. #AMS - Likely delirium on dementia. SLUMS in 2020 c/w moderate dementia. Family reports acute worsening 4 days ago w/ increased confusion, weakness, and loss of independence w ADLs. - No obvious etiology: Does not take any medications or supplements regularly. Labs show no electrolyte derangements. No leukocytosis. Last TSH level wnl. - Family reports recent illness and CXR shows consolidation, but pt had no sick sx and CXR is comparable to previous imaging. - UA with no sign of infection. - Head CT w/o acute processes, shows cerebral atrophy c/w progressive dementia - Family no longer able to care for patient, who lives alone in two-story home, forgets to take her medications, and cannot easily call for help. Not safe for d/c home - Case management consulted- [facility] can accept patient Thursday #Weakness / fall - Pt found on the floor of her bathroom by niece day of admit. - No trauma or impaired ROM noted on exam. Head CT and c-spine CT show no acute changes. - CK 186 - PT/OT consulted, recommend acute SNF rehab Chronic, stable conditions: - HTN - BP persistently elevated in ED, up to 181/84. Consider resuming previous meds (HCTZ, losartan, metoprolol) - HLD - pt stopped simvastatin; has been at goal w/o medication Diet: IVF --> regular diet, encourage po intake Dispo: admit to med/surg, anticipate placement at rehab/SNF. Working on options between [facility] vs [facility] with patient's POA Full code Admission and Anticipated Discharge Date Admission Date: August 21, 2024 Supervising Physician Co-Signing Physician Notes I personally examined the patient and verified estrada points of history and exam, discussed case, and agree with decision making and plan documented by Dr. Quinteros. Patient denies acute concerns, wants to go home. Anticipate discharge to [facility] Thursday. Updated POA Lauren at bedside. Subjective Karina Lopez is feeling better today, without arm pain. Patient is irritated that she is still admitted in the hospital, but denies acute pains. Patient continues to be oriented to name and place but not age. Patient is afebrile and hemodynamically stable. Patient remains medically stable and once authorized will require transfer to SNF vs terminal [facility]. Patient's niece, Lauren, is discussing placement with [facility], can accept patient on Thursday. Physical Exam Physical Exam: General: patient resting comfortably, NAD, non-toxic in appearance, answers questions appropriately. Skin: warm, dry, intact HEENT: NC/AT, anicteric sclera, conjunctiva without injection, moist mucus membranes. Heart: +S1/S2, regular, no m/r/g Lungs: equal air entry bilaterally, no rales/rhonchi/wheezes Abd: +BS, soft, NT/ND Ext: warm, no clubbing/cyanosis or edema Neuro: nonfocal, speech intact, no facial droop, moving all extremities. Resident Activity Tracking Resident Involvement: Resident Care Provided Care Provided: Adult Hospital Medicine (4) Fall Encounter type: initial encounter Qualified Code(s): W19.XXXA - Unspecified fall, initial encounter
[2024-08-28] MEDS ORDERED: DICLOFENAC SOD 1% GEL 100 GM TUBE EXT PRN (08:25)
--- NOTE | 2024-08-28 15:26 | Hospitalist Progress Note ---
Date of Service August 28, 2024 Assessment & Plan (1) Dementia: (2) Altered mental status: (3) Generalized weakness: (4) Fall: (5) Hypertension: Plan Karina is an 89yo F with PMHx of Alzheimer's dementia, CAD s/p CABG, HTN, and aortic insufficiency who presented to the ED after a fall at home. #AMS - Likely delirium on dementia. SLUMS in 2020 c/w moderate dementia. Family reports acute worsening 4 days ago w/ increased confusion, weakness, and loss of independence w ADLs. - No obvious etiology: Does not take any medications or supplements regularly. Labs show no electrolyte derangements. No leukocytosis. Last TSH level wnl. - Family reports recent illness and CXR shows consolidation, but pt had no sick sx and CXR is comparable to previous imaging. - UA with no sign of infection. - Head CT w/o acute processes, shows cerebral atrophy c/w progressive dementia - Family no longer able to care for patient, who lives alone in two-story home, forgets to take her medications, and cannot easily call for help. Not safe for d/c home - Case management consulted- [facility] can accept patient Thursday #Weakness / fall - Pt found on the floor of her bathroom by niece day of admit. - No trauma or impaired ROM noted on exam. Head CT and c-spine CT show no acute changes. - CK 186 - PT/OT consulted, recommend acute SNF rehab Chronic, stable conditions: - HTN - BP persistently elevated in ED, up to 181/84. Consider resuming previous meds (HCTZ, losartan, metoprolol) - HLD - pt stopped simvastatin; has been at goal w/o medication Diet: IVF --> regular diet, encourage po intake Dispo: admit to med/surg, anticipate placement at rehab/SNF. Working on options between [facility] vs [facility] with patient's POA Full code Admission and Anticipated Discharge Date Admission Date: August 21, 2024 Supervising Physician Co-Signing Physician Notes I personally examined the patient and verified estrada points of history and exam, discussed case, and agree with decision making and plan documented by Dr. Quinteros. No concerns overnight. Anticipate discharge to [facility] Thursday. ERYN Aguilar updated and coordinating. Mary Lopez is feeling well today without acute complaints. Patient continues to be oriented to name and place but not age. Patient is afebrile and hemodynamically stable. Awaiting placement, [facility], can accept patient on Thursday. Physical Exam Physical Exam: General: patient resting comfortably, NAD, non-toxic in appearance, answers questions appropriately. Skin: warm, dry, intact HEENT: NC/AT, anicteric sclera, conjunctiva without injection, moist mucus membranes. Heart: +S1/S2, regular, no m/r/g Lungs: equal air entry bilaterally, no rales/rhonchi/wheezes Abd: +BS, soft, NT/ND Ext: warm, no clubbing/cyanosis or edema Neuro: nonfocal, speech intact, no facial droop, moving all extremities. Results & Data Results & Data Vital Signs (Past 12 Hours) Vital Signs Temp Pulse Resp BP Pulse Ox O2 Del Method 08/28/24 14:14 37.1 C 78 18 134/73 97 Room Air 08/28/24 07:04 36.8 C 59 L 18 166/67 H 97 Room Air 08/28/24 07:00 Room Air Resident Activity Tracking Resident Involvement: Resident Care Provided Care Provided: Adult Hospital Medicine (4) Fall Encounter type: initial encounter Qualified Code(s): W19.XXXA - Unspecified fall, initial encounter
--- NOTE | 2024-08-29 12:55 | Hospitalist Progress Note ---
Date of Service August 29, 2024 Assessment & Plan (1) Dementia: (2) Altered mental status: (3) Generalized weakness: (4) Fall: (5) Hypertension: Plan Karina is an 89yo F with PMHx of Alzheimer's dementia, CAD s/p CABG, HTN, and aortic insufficiency who presented to the ED after a fall at home. #AMS - Likely delirium on dementia. SLUMS in 2020 c/w moderate dementia. Family reports acute worsening 4 days ago w/ increased confusion, weakness, and loss of independence w ADLs. - No obvious etiology: Does not take any medications or supplements regularly. Labs show no electrolyte derangements. No leukocytosis. Last TSH level wnl. - Family reports recent illness and CXR shows consolidation, but pt had no sick sx and CXR is comparable to previous imaging. - UA with no sign of infection. - Head CT w/o acute processes, shows cerebral atrophy c/w progressive dementia - Family no longer able to care for patient, who lives alone in two-story home, forgets to take her medications, and cannot easily call for help. Not safe for d/c home - Case management consulted- [facility] can accept patient Thursday #Weakness / fall - Pt found on the floor of her bathroom by niece day of admit. - No trauma or impaired ROM noted on exam. Head CT and c-spine CT show no acute changes. - CK 186 - PT/OT consulted, recommend acute SNF rehab Chronic, stable conditions: - HTN - BP persistently elevated in ED, up to 181/84. Consider resuming previous meds (HCTZ, losartan, metoprolol) - HLD - pt stopped simvastatin; has been at goal w/o medication Diet: IVF --> regular diet, encourage po intake Dispo: admit to med/surg, anticipate placement at rehab/SNF. Working on options between [facility] vs [facility] with patient's POA Full code Admission and Anticipated Discharge Date Admission Date: August 21, 2024 Supervising Physician Co-Signing Physician Notes I personally examined the patient and verified all estrada points of history and exam, discussed case, and agree with decision making with Dr Quinteros no complaints. praying the rosary when i see her. vitals noted nad heent nc at mmm breathing unlabored no accessory muscles good effort skin no rashes no pallor or icterus neuro no focal deficits dementia - for placement. appreciate case management assistance. otherwise as above Subjective Karina Lopez is feeling well today without acute complaints. Patient continues to be oriented to name and place but not age. Patient is afebrile and hemodynamically stable. Awaiting placement, [facility] and [facility]hs for SNF vs intermediate care have been placed today. Physical Exam Physical Exam: General: patient resting comfortably, NAD, non-toxic in appearance, answers questions appropriately. Skin: warm, dry, intact HEENT: NC/AT, anicteric sclera, conjunctiva without injection, moist mucus membranes. Heart: +S1/S2, regular, no m/r/g Lungs: equal air entry bilaterally, no rales/rhonchi/wheezes Abd: +BS, soft, NT/ND Ext: warm, no clubbing/cyanosis or edema Neuro: nonfocal, speech intact, no facial droop, moving all extremities. Results & Data Results & Data Vital Signs (Past 12 Hours) Vital Signs Temp Pulse Resp BP Pulse Ox O2 Del Method 08/29/24 08:07 36.9 C 61 16 161/67 H 97 Room Air 08/29/24 07:45 Room Air Resident Activity Tracking Resident Involvement: Resident Care Provided Care Provided: Adult Hospital Medicine (4) Fall Encounter type: initial encounter Qualified Code(s): W19.XXXA - Unspecified fall, initial encounter
--- NOTE | 2024-08-29 14:59 | Billing Data ---
Date of Service August 29, 2024 Coding Level of Care Code 00020 SUB INP/OBS CARE
[2024-08-30 06:54] VITALS: BP 134/65; PULSE 63; RESP 16; TEMP 98.1; O2SAT 96
--- NOTE | 2024-08-30 09:49 | Hospitalist Progress Note ---
Date of Service August 30, 2024 Assessment & Plan (1) Dementia: (2) Altered mental status: (3) Generalized weakness: (4) Fall: (5) Hypertension: Plan Karina is an 89yo F with PMHx of Alzheimer's dementia, CAD s/p CABG, HTN, and aortic insufficiency who presented to the ED after a fall at home. #AMS - Likely delirium on dementia. SLUMS in 2020 c/w moderate dementia. Family reports acute worsening 4 days ago w/ increased confusion, weakness, and loss of independence w ADLs. - No obvious etiology: Does not take any medications or supplements regularly. Labs show no electrolyte derangements. No leukocytosis. Last TSH level wnl. - Family reports recent illness and CXR shows consolidation, but pt had no sick sx and CXR is comparable to previous imaging. - UA with no sign of infection. - Head CT w/o acute processes, shows cerebral atrophy c/w progressive dementia - Family no longer able to care for patient, who lives alone in two-story home, forgets to take her medications, and cannot easily call for help. Not safe for d/c home - Case management consulted- [facility] can accept patient, auths sent. Waiting on placement. #Weakness / fall - Pt found on the floor of her bathroom by niece day of admit. - No trauma or impaired ROM noted on exam. Head CT and c-spine CT show no acute changes. - CK 186 - PT/OT consulted, recommend acute SNF rehab Chronic, stable conditions: - HTN - BP persistently elevated in ED, up to 181/84. Consider resuming previous meds (HCTZ, losartan, metoprolol) - HLD - pt stopped simvastatin; has been at goal w/o medication Diet: IVF --> regular diet, encourage po intake Dispo: admit to med/surg, anticipate placement at rehab/SNF. Working on options between [facility] vs [facility] with patient's POA Full code Admission and Anticipated Discharge Date Admission Date: August 21, 2024 Supervising Physician Co-Signing Physician Notes I personally examined the patient and verified all estrada points of history and exam, discussed case, and agree with decision making with Dr Quinteros no complaints. less talkative today. vitals noted nad heent nc at mmm breathing unlabored no accessory muscles good effort skin no rashes no pallor or icterus neuro no focal deficits dementia - for placement. authorization pending. appreciate case management assistance. otherwise as above Subjective Karina Lopez is feeling well today without acute complaints. Patient continues to be oriented to name and place but not age. Patient is afebrile and hemodynamically stable. Awaiting placement, [facility] will accept patient and auths for SNF vs [facility] have been placed. Physical Exam Physical Exam: General: patient resting comfortably, NAD, non-toxic in appearance, answers questions appropriately. Skin: warm, dry, intact HEENT: NC/AT, anicteric sclera, conjunctiva without injection, moist mucus membranes. Heart: +S1/S2, regular, no m/r/g Lungs: equal air entry bilaterally, no rales/rhonchi/wheezes Abd: +BS, soft, NT/ND Ext: warm, no clubbing/cyanosis or edema Neuro: nonfocal, speech intact, no facial droop, moving all extremities. Results & Data Results & Data Vital Signs (Past 12 Hours) Vital Signs Temp Pulse Resp BP Pulse Ox O2 Del Method 08/30/24 06:53 36.7 C 63 16 134/65 96 Room Air 08/29/24 23:12 Room Air Resident Activity Tracking Resident Involvement: Resident Care Provided Care Provided: Adult Hospital Medicine (4) Fall Encounter type: initial encounter Qualified Code(s): W19.XXXA - Unspecified fall, initial encounter
--- NOTE | 2024-08-30 11:49 | Billing Data ---
Date of Service August 30, 2024 Coding Level of Care Code 47850 SUB INP/OBS CARE
--- NOTE | 2024-08-30 13:19 | Discharge Summary ---
Date of Service August 30, 2024 Admission HPI Per Admitting Provider Karina is an 89yo F with PMH notable for Alzheimer's dementia, CAD s/p CABG, HTN, and aortic insufficiency who presented to the ED on 08/21 after a fall at home. Her niece Lauren is present in the room and provides most of the history. The patient was diagnosed with Alzheimer's about 6y ago. Was stable until 2021, when she started forgetting to take her medications, and her care team together chose to discontinue them. Her condition was then stable until this past Thursday (08/17), at which point she acutely worsened cognitively and physically. Her niece says the patient is independent at baseline; she lives al one and did not need assistance with ADLs, though her family visited regularly to check on her. Since Thursday, she has been weaker, shaky, unable to care for herself, confused beyond baseline dementia, and speaking slower. The family has some illness going around, and her acute changes were initially attributed to the infection. Then, this morning, Lauren found her on the floor of the bathroom. Karina cannot remember, or is not able to describe, the fall or any associated trauma or LOC. It is unknown how long she was down, though Lauren estimates about 2 hours. In the ED, Karina is stable, still confused, says she feels "fine" and repeatedly asks if she has to stay here tonight. She verbalizes lack of pain, LUCAS, SOB. Admission Exam Per Admitting Provider Gen: frail, not ill-appearing, confused but cooperative HEENT: NCAT, PERRL, EOMI, no LAD or thyromegaly, mucous membranes somewhat dry CV: RRR, no m/r/g, S1/S2 normal, no LE edema Resp: CTAB, symmetrical chest rise, breathing non-labored Abd: Soft, NT/ND, +BS, no HSM MSK: Full ROM, no gross deformities Skin: Warm, dry, no skin tenting, diffuse ecchymoses a/w previous IVs Neuro: AOx3, some difficulty following instructions, shakiness, PERRL, EOMI, no facial droop, SILT through face and extremities, no focal deficits, str 3/5 in all ext Principal Diagnosis AMS/Falls Discharge Exam General: patient resting comfortably, NAD, non-toxic in appearance, answers questions appropriately. AXO2, oriented to place and name, but not age. Skin: warm, dry, intact HEENT: NC/AT, anicteric sclera, conjunctiva without injection, moist mucus membranes. Heart: +S1/S2, regular, no m/r/g Lungs: equal air entry bilaterally, no rales/rhonchi/wheezes Abd: +BS, soft, NT/ND Ext: warm, no clubbing/cyanosis or edema Neuro: nonfocal, speech intact, no facial droop, moving all extremities. Discharge Data Allergies Allergy/AdvReac Type Severity Reaction Status Date / Time amoxicillin Allergy Severe "SHORT OF Verified 01/20/24 15:17 BREATH" atorvastatin AdvReac Intermediate myalgia Verified 01/20/24 15:17 Consultations 08/21/24 14:24 ED Decision to Admit Stat Ordered Studies 08/21/24 11:34 CT cervical spine wo con Stat CT head/brain wo con Stat Hospital Course (1) Dementia: (2) Altered mental status: (3) Generalized weakness: (4) Fall: (5) Hypertension: Alonzo Collins is an 89yo F with PMHx of Alzheimer's dementia, CAD s/p CABG, HTN, and aortic insufficiency who presented to the ED after a fall at home. #AMS - Likely delirium on dementia. SLUMS in 2020 c/w moderate dementia. Family reports acute worsening 4 days ago w/ increased confusion, weakness, and loss of independence w ADLs. - No obvious etiology: Does not take any medications or supplements regularly. Labs show no electrolyte derangements. No leukocytosis. Last TSH level wnl. - Family reports recent illness and CXR shows consolidation, but pt had no sick sx and CXR is comparable to previous imaging. - UA with no sign of infection. - Head CT w/o acute processes, shows cerebral atrophy c/w progressive dementia - Family no longer able to care for patient, who lives alone in two-story home, forgets to take her medications, and cannot easily call for help. Not safe for d/c home - Case management consulted- [facility] can accept patient, auths sent. Waiting on placement. #Weakness / fall - Pt found on the floor of her bathroom by niece day of admit. - No trauma or impaired ROM noted on exam. Head CT and c-spine CT show no acute changes. - CK 186 - PT/OT consulted, recommend acute SNF rehab Chronic, stable conditions: - HTN - BP persistently elevated in ED, up to 181/84. Consider resuming previous meds (HCTZ, losartan, metoprolol) - HLD - pt stopped simvastatin; has been at goal w/o medication Diet: IVF --> regular diet, encourage po intake Dispo: admit to med/surg, anticipate placement at rehab/SNF. Working on options between [facility] vs [facility] with patient's POA Full code Total Time Total Time Spent Total Time Spent (In Minutes): See attending attestation Discharge Plan Discharge Items Patient Disposition: Transfer [facility] Fac Reason For Visit: AMS, FALL Discharge Diagnosis: AMS, Fall Activity: Per Instructions section Non-emergency contact: Primary Care Provider Call non-emergency contact if: your pain is not controlled Follow-up/Referrals: Enrique Sharp, [Primary Care Provider] - Diet: Regular Addtl Attending Provider Instructions: You were admitted to the hospital for altered mental status and a fall. While at the hospital you remained healthy and stable but required admission due to decreasing function at home with ADLs and iADLS and your family was concerned about safety and ability to live independently without support. You were also seen by physical therapy and occupational therapy who agreed that you needed further rehabilitation to improve your strength. Your niece and POA, Lauren, was contacted and your hospital course was discussed with her. She relayed hat your cognitive and physical decline has been worsening in the past few months and this progression has gotten acutely worse in the past few weeks. After a discussion it was decided that your health, medications, daily life would be better controlled in an environment with 24/7 monitoring as well as physical therapy and occupational therapy daily. You will be transferred to [facility] for senior care rehabilitation and long-term care. A discharge summary will be sent to your primary care physician to ensure continuity of care. Please bring this discharge summary with you to your next office appointment so that your provider can review it at that time. CONTACT YOUR PRIMARY CARE PROVIDER if you experience any of the following: Difficulty following your treatment plan, or difficulty taking medications CALL 911 OR GO TO THE EMERGENCY DEPARTMENT if you experience any of the following: Sudden, severe abdominal pain or nausea/vomiting Severe chest pain, or chest pain that radiates (moves) to your jaw or arm Sudden, severe shortness of breath or difficulty breathing Thank you for allowing us to participate in your care. Pending Studies at Discharge: No Stand-Alone Forms: My Cocodrilo Dog, Smoking Cessation Skilled Items Patient informed of condition?: Yes DNR: No Discharge Level of Care: Skilled Communicable Disease: No Discharge Prognosis: Stable Lines: None Urinary Catheter: No Medications and DC Order Prescriptions: No Action No Known Home Medications Discharge Orders: Discharge Order (Routine); Ordered 08/30/24 Ordered By: Marcial Quinteros Admission Data Admit Date/Time: 08/21/24 15:01 Attending Provider: Kodi Sterling Admit Provider: Silvia Velazquez Primary Care Provider: Enrique Sharp Other Providers: Kodi Sterling; Topher Chery; Emma,; Martin,[facility] Other Interventions: Discharge Summary Assessment (RN) Last Done: 08/30/24 13:06 Supervising Physician Co-Signing Physician Notes I personally examined the patient and verified all estrada points of history and exam, discussed case, and agree with decision making with Dr Quinteros no complaints. less talkative today. vitals noted nad heent nc at mmm breathing unlabored no accessory muscles good effort skin no rashes no pallor or icterus neuro no focal deficits dementia - for placement today Resident Activity Tracking Resident Involvement: Resident Care Provided Care Provided: Adult Hospital Medicine
--- NOTE | 2024-08-30 15:18 | Billing Data ---
Date of Service August 30, 2024 Coding Level of Care Code 01726 IN/OBS DISCH 30 MIN/LESS Comment disregard 231
== END 2024-08-30 14:19 | DRG 57 ==
LOC: ED 11:05 → SUATTDRO 15:01 → 3N 15:01